=== PATIENT | male | born 1965 | race Caucasian/White ===

== ENCOUNTER 2019-01-07 20:29 | Emergency (ER) | payer BC, OTHER ==
[2019-01-07] MEDS ORDERED: KEFLEX 500 MG PO ONE (20:39)
[2019-01-07] MEDS ORDERED: KEFLEX 500 MG ONE (20:44)
[2019-01-07] MEDS ORDERED: MOTRIN 400 MG PO ONE (20:57)
[2019-01-07] MEDS ORDERED: MOTRIN 400 MG ONE (21:00)
--- NOTE | 2019-01-07 21:26 | ERPHSYRPT ---
- History of Present Illness Time Seen by Provider: 01/07/19 20:34 Source: patient Exam Limitations: no limitations Patient Subjective Stated Complaint: dressing stuck to wound on finger, redness noted to left middle finger Triage Nursing Assessment: redness noted to left middle finger with stiches intact Physician History: Pt was treated here 2 days ago, laceration to his left middle finger was sutured. He returned, because the gauze stuck in his sutures, and c/o swelling, and some redness in the area. He felt some chills, but did not take his temperature, did not take any medications. Occurred: days ago (2) Method of Injury: direct blow Quality: constant Severity of Pain-Max: mild Severity of Pain-Current: mild Extremities Pain Location: shoulder: left, 3rd finger: left (laceration sutured 2 days ago here) Modifying Factors: Improves With: immobilization, movement Associated Symptoms: fever Allergies/Adverse Reactions: codeine Allergy (Verified 01/05/19 18:38) Swelling iodine Allergy (Verified 01/05/19 18:38) Swelling Home Medications: No Reportable Medications [No Reported Medications] 01/05/19 [History] Hx Tetanus, Diphtheria Vaccination/Date Given: Yes Hx Influenza Vaccination/Date Given: No Hx Pneumococcal Vaccination/Date Given: No Immunizations Up to Date: No - Review of Systems Constitutional: Fever (subjective), Chills Ears, Nose, & Throat: No Symptoms Respiratory: No Symptoms Cardiac: No Symptoms Abdominal/Gastrointestinal: No Symptoms Genitourinary Symptoms: No Symptoms Musculoskeletal: Other (left middle finger laceration ) Skin: No Symptoms Neurological: No Symptoms All Other Systems: Reviewed and Negative - Past Medical History Pertinent Past Medical History: No Neurological History: No Pertinent History ENT History: Cataracts Cardiac History: No Pertinent History Respiratory History: No Pertinent History Endocrine Medical History: No Pertinent History Musculoskeletal History: No Pertinent History GI Medical History: No Pertinent History History: No Pertinent History Psycho-Social History: No Pertinent History Male Reproductive Disorders: No Pertinent History - Past Surgical History Past Surgical History: Yes Neuro Surgical History: No Pertinent History Cardiac: No Pertinent History Respiratory: No Pertinent History Gastrointestinal: Cholecystectomy Genitourinary: No Pertinent History Musculoskeletal: No Pertinent History Male Surgical History: No Pertinent History - Social History Smoking Status: Never smoker Exposure to second hand smoke: No Drug Use: none Patient Lives Alone: No - Nursing Vital Signs Nursing Vital Signs: Initial Vital Signs Temperature 100.3 F 01/07/19 20:37 Pulse Rate 104 H 01/07/19 20:37 Respiratory Rate 20 01/07/19 20:37 Blood Pressure 178/102 01/07/19 20:37 O2 Sat by Pulse Oximetry 97 01/07/19 20:37 Pain Scale Pain Intensity 6 - Physical Exam General Appearance: no apparent distress Neck Exam: normal inspection Cardiovascular/Respiratory Exam: chest non-tender, normal breath sounds, heart sounds normal Abdominal Exam: non-tender Back Exam: normal inspection Hand Exam: soft tissue tenderness (transverse laceration of the volar aspect of the middle finger at the PIP level, sutures are intact, slight ( 1-2 mm) incipient skin necrosis, a drop of pus appeared upon pressing the proximal, radial end of the wound, the base phalanx and the distal dorsal hand is swollen , distal circulation of the finger is intact, normal ( < 2 sec. ) capillary refills and intact sensation. ) Neuro/Tendon Exam: normal motor functions Mental Status Exam: alert, oriented x 3 Skin Exam: normal color, warm, dry SpO2 Interpretation: normal SpO2: 97 O2 Delivery: Room Air - Course Nursing assessment & vital signs reviewed: Yes - Radiology Exams Left Hand X-ray Interpretation: Interpreted by me, Negative Ordered Tests: Active Orders 24 hr Category Date Time Status IV Insertion STAT Care 01/07/19 22:10 Active Wound Care STAT Care 01/07/19 20:37 Active HAND (MINIMUM 3 VIEWS) Stat Exams 01/07/19 21:02 Taken CULTURE,WOUND Stat Lab 01/07/19 20:38 Received Medication Summary Generic Name Dose Route Start Last Admin Trade Name Freq PRN Reason Stop Dose Admin Vancomycin HCl 1 gm in 250 mls @ 167 mls/hr 01/07/19 22:10 01/07/19 23:08 Vancomycin 1gm/ Ns 250ml IV 01/07/19 23:39 167 mls/hr STAT ONE Administration Discontinued Medications Generic Name Dose Route Start Last Admin Trade Name Freq PRN Reason Stop Dose Admin Cephalexin HCl 500 mg 01/07/19 20:39 01/07/19 20:49 Keflex 500 Mg PO 01/07/19 20:40 500 mg STAT ONE Administration Cephalexin HCl Confirm 01/07/19 20:44 Keflex 500 Mg Administered 01/07/19 20:45 Dose 500 mg .ROUTE .STK-MED ONE Ceftriaxone Sodium/Dextrose 1 g in 50 mls @ 100 mls/hr 01/07/19 22:10 23:04 Rocephin 1 Gm-D5w 50 Ml Bag IV 01/07/19 22:39 Infused STAT STA Infusion Ceftriaxone Sodium/Dextrose Confirm 01/07/19 22:28 Rocephin 1 Gm-D5w 50 Ml Bag Administered 01/07/19 22:29 Dose 1 g in 50 mls @ ud IV .STK-MED ONE Vancomycin HCl Confirm 01/07/19 22:59 Vancomycin 1gm/ Ns 250ml Administered 01/07/19 23:00 Dose 250 mls @ ud IV .STK-MED ONE Ibuprofen 400 mg 01/07/19 20:57 01/07/19 21:03 Motrin 400 Mg PO 01/07/19 20:58 400 mg STAT ONE Administration Ibuprofen Confirm 01/07/19 21:00 Motrin 400 Mg Administered 01/07/19 21:01 Dose 400 mg .ROUTE .STK-MED ONE - Progress Progress: improved Progress Note: 01/07/19 21:30 Wound cultures obtained, pt was given Motrin and PO Keflex, X ray reviewed, called Dr Spencer, hand surgeon in [facility], [place], discussed this case in details, he accepted patient to be admitted to [facility] for further treatment. 01/07/19 22:23 Pt was also given 1000 mg Rocephin, and 1 g Vancomycin IV, called Dr Baca, Hospitalist in [facility], discussed our case in details, he accepted patient to be admitted there. Pt will be driven there by his friend , after IV antibiotics completed, he was informed and agreed, understood all risks and benefits of this transfer, he has been stable. Counseled pt/family regarding: diagnosis, rad results - Departure Departure Disposition: Transfer ([facility], Direct Admission Room: 4160) Clinical Impression: Tenosynovitis of finger and hand Laceration of finger of left hand Qualifiers: Encounter type: subsequent encounter Finger: middle finger Damage to nail status: with damage Foreign body presence: without foreign body Qualified Code(s ): S61.313D - Laceration without foreign body of left middle finger with damage to nail, subsequent encounter Condition: Stable Critical Care Time: No Referrals: DOCTOR,NO FAMILY [Primary Care Provider] -
[2019-01-07] MEDS ORDERED: Vancomycin 1GM/ Ns 250ML*** 1 GM/250 ML IVPB IV ONE (22:10)
[2019-01-07] MEDS ORDERED: ROCEPHIN 1 Gm-D5w 50 ml Bag** 1 G/50 ML IVPB IV STA (22:10)
[2019-01-07] MEDS ORDERED: ROCEPHIN 1 Gm-D5w 50 ml Bag** 1 G/50 ML IVPB IV ONE (22:28)
[2019-01-07] MEDS ORDERED: Vancomycin 1GM/ Ns 250ML*** 0 ML IV ONE (22:59)
[2019-01-08 00:08] VITALS: O2SAT 96
[2019-01-08 00:51] VITALS: BP 147/89; PULSE 92
--- NOTE | 2019-01-08 08:56 | XRAY ---
Indication: 3rd finger pain and swelling. Comparison: None 3 views of the left hand demonstrates minimal degenerative changes 1st IP and 3rd DIP joints. No other bony, articular, or soft tissue abnormalities.
== END 2019-01-08 00:52 | disposition short-term general hospital (02) ==
LOC: ED 20:29
DX: M65.842 Other synovitis and tenosynovitis, left hand (principal); S61.313D Laceration without foreign body of left middle finger with damage to nail, subsequent encounter; W22.8XXD Striking against or struck by other objects, subsequent encounter
CPT/HCPCS: 36000; 73130; 87070; 87077; 87186; 96365; 96368; 96374; 99285; J0696; J3370; A9270-GY

== ENCOUNTER 2020-12-06 04:11 | Emergency (ER) | payer BC ==
[2020-12-06] MEDS ORDERED: Zofran 4 MG/2 ML VIAL IV ONE (04:44)
[2020-12-06] MEDS ORDERED: PROTONIX 40 MG IV IV ONE ×2 (04:46→04:51)
[2020-12-06] MEDS ORDERED: Hydromorphone 1 mg/ml Injection IV ONE (04:46)
[2020-12-06] MEDS ORDERED: Zofran 4 MG/2 ML VIAL ONE (04:51)
[2020-12-06] MEDS ORDERED: Hydromorphone 1 mg/ml Injection ONE (04:52)
[2020-12-06] MEDS ORDERED: Sodium Chloride 0.9% 1000 ML 1,000 ML ONE (04:52)
[2020-12-06] MEDS ORDERED: Sodium Chloride 0.9% 1000 ML 1,000 ML IV SCH (05:00)
--- NOTE | 2020-12-06 05:07 | ERPHSYRPT ---
- History of Present Illness Time Seen by Provider: 12/06/20 04:45 Source: patient Patient Subjective Stated Complaint: pt states he woke up with pain in the upper abd today. rates 8/10 and describes as sharp, cramping. c/o nausea and dry heaving but no vomiting. states he was diagnosed with covid approx 2 weeks ago Triage Nursing Assessment: pt alert and oriented, answers questions approp. pt ambulatory with steady gait noted. respirations nonlabored with lungs cta. skin warm and dry. respirations nonlabored with lungs cta. abd soft and nontender with bowel sounds present x4. heart rate 103 on monitor, sinus tach. Physician History: This is a 55-year-old white male who tested positive for the COVID-19 virus just under 2 weeks ago. He has had some underlying nausea, decreased appetite and dry heaves as well as cough. A few hours ago, he woke up with epigastric burning and sharp pain. He describes it as a heartburn. He is not short of breath. He has had no vomiting but dry heaves present. He also states that his bowel movements are normal. He has not had diarrhea. He has not had any fevers or chills. Timing/Duration: hour(s) (Approximately 1 to 2 hours ago) Cough Quality/Degree: mild Possible Cause: no prior episodes Modifying Factors: Improves With: coughing Associated Symptoms: cough, muscle aches, No fever, No chills, No chest pain/soreness, No dizziness, No shortness of breath Allergies/Adverse Reactions: codeine Allergy (Verified 12/06/20 04:23) Swelling iodine Allergy (Verified 12/06/20 04:23) Swelling Home Medications: No Reportable Medications [No Reported Medications] 01/05/19 [History] Hx Tetanus, Diphtheria Vaccination/Date Given: Yes (2018) Hx Influenza Vaccination/Date Given: No Hx Pneumococcal Vaccination/Date Given: No Immunizations Up to Date: Yes Travel Risk - International Travel Have you traveled outside of the country in past 3 weeks: No - Coronavirus Screening Are you exhibiting any of the following symptoms?: Yes Symptoms: Fever, Cough: New Onset, Headaches/Body Aches/Fatigue Close contact with a COVID-19 positive Pt in past 14-21 Days: Yes - Vaccine Status Have you recieved a Covid-19 vaccination: No - Review of Systems Constitutional: No Symptoms Eyes: No Symptoms Ears, Nose, & Throat: No Symptoms Respiratory: Cough Cardiac: No Symptoms Abdominal/Gastrointestinal: Abdominal Pain (Epigastric sharp pain and burning), Nausea, Appetite Changes, No Vomiting, No Diarrhea Genitourinary Symptoms: No Symptoms Musculoskeletal: No Symptoms Skin: No Symptoms Neurological: No Symptoms Psychological: No Symptoms Endocrine: No Symptoms Hematologic/Lymphatic: No Symptoms Immunological/Allergic: No Symptoms All Other Systems: Reviewed and Negative - Past Medical History Pertinent Past Medical History: No Neurological History: No Pertinent History ENT History: Cataracts Cardiac History: No Pertinent History Respiratory History: No Pertinent History Endocrine Medical History: No Pertinent History Musculoskeletal History: No Pertinent History GI Medical History: No Pertinent History History: No Pertinent History Psycho-Social History: No Pertinent History Male Reproductive Disorders: No Pertinent History Other Medical History: pt states borderline diabetic - Past Surgical History Past Surgical History: Yes Neuro Surgical History: No Pertinent History Cardiac: No Pertinent History Respiratory: No Pertinent History Gastrointestinal: Cholecystectomy Genitourinary: No Pertinent History Musculoskeletal: No Pertinent History Male Surgical History: No Pertinent History - Social History Smoking Status: Never smoker Exposure to second hand smoke: No Drug Use: none Patient Lives Alone: No - Nursing Vital Signs Nursing Vital Signs: Initial Vital Signs Temperature 100.8 F 12/06/20 04:23 Pulse Rate 103 H 12/06/20 04:23 Respiratory Rate 18 12/06/20 04:23 Blood Pressure 151/91 12/06/20 04:23 O2 Sat by Pulse Oximetry 93 L 12/06/20 04:23 Pain Scale Pain Intensity 2 - Physical Exam General Appearance: no apparent distress, alert, anxiety Eye Exam: PERRL/EOMI, eyes nml inspection Ears, Nose, Throat Exam: normal ENT inspection, moist mucous membranes Neck Exam: normal inspection, non-tender, supple, full range of motion Respiratory Exam: normal breath sounds, lungs clear, airway intact, No chest tenderness, No respiratory distress Cardiovascular Exam: regular rate/rhythm, normal heart sounds, normal peripheral pulses Gastrointestinal/Abdomen Exam: soft, normal bowel sounds, tenderness (Epigastric burning), No guarding, No rebound Rectal Exam: not done Back Exam: normal inspection, normal range of motion, No CVA tenderness, No vertebral tenderness Extremity Exam: normal inspection, normal range of motion, pelvis stable Neurologic Exam: alert, oriented x 3, cooperative, golf course ranger II-XII nml as tested, normal mood/affect, nml cerebellar function, nml station & gait, sensation nml Skin Exam: normal color, warm, dry Lymphatic Exam: No adenopathy SpO2 Interpretation: borderline oxygenation SpO2: 93 O2 Delivery: Room Air - Course Nursing assessment & vital signs reviewed: Yes Ordered Tests: Active Orders 24 hr Category Date Time Status EKG-ER Only STAT Care 12/06/20 04:44 Active IV Insertion STAT Care 12/06/20 04:44 Active Isolation, Initiate & Maintain STAT Care 12/06/20 04:44 Active CHEST 1 VIEW (PORTABLE) Stat Exams 12/06/20 05:35 Taken AMYLASE Stat Lab 12/06/20 05:00 Completed CBC W DIFF Routine Lab 12/06/20 05:07 Completed CMP Stat Lab 12/06/20 05:00 Completed CULTURE,URINE Stat Lab 12/06/20 04:49 Received D-DIMER QUANTITATIVE Stat Lab 12/06/20 05:00 Completed Ferritin Stat Lab 12/06/20 05:00 Received LDH-LACTATE DEHYDROGENASE Stat Lab 12/06/20 05:00 Completed LIPASE Stat Lab 12/06/20 05:00 Completed Lactic Acid Stat Lab 12/06/20 05:00 Completed PROTIME WITH INR Stat Lab 12/06/20 05:00 Completed TROPONIN Q3H Lab 12/06/20 04:49 Completed TROPONIN Q3H Lab 12/06/20 08:00 Ordered TROPONIN Q3H Lab 12/06/20 11:00 Ordered TROPONIN Q3H Lab 12/06/20 14:00 Ordered TROPONIN Q3H Lab 12/06/20 17:00 Ordered UA W/RFX UR CULTURE Stat Lab 12/06/20 04:49 Completed Medication Summary Generic Name Dose Route Start Last Admin Trade Name Freq PRN Reason Stop Dose Admin Sodium Chloride 1,000 mls @ 100 mls/hr 12/06/20 05:00 12/06/20 05:00 Sodium Chloride 0.9% 1000 Ml IV 01/05/21 04:59 100 mls/hr .Q10H KATERIN Administration Discontinued Medications Generic Name Dose Route Start Last Admin Trade Name Freq PRN Reason Stop Dose Admin Hydromorphone HCl 1 mg 12/06/20 04:46 12/06/20 05:01 Hydromorphone 1 Mg/Ml Injection IV 12/06/20 04:47 1 mg STAT ONE Administration Hydromorphone HCl Confirm 12/06/20 04:52 Hydromorphone 1 Mg/Ml Injection Administered 12/06/20 04:53 Dose 1 mg .ROUTE .STK-MED ONE Ondansetron HCl 4 mg 12/06/20 04:44 12/06/20 05:01 Zofran 4 Mg/2 Ml Vial IV 12/06/20 04:45 4 mg STAT ONE Administration Ondansetron HCl Confirm 12/06/20 04:51 Zofran 4 Mg/2 Ml Vial Administered 12/06/20 04:52 Dose 4 mg .ROUTE .STK-MED ONE Pantoprazole Sodium 40 mg 12/06/20 04:46 12/06/20 05:00 Protonix 40 Mg Iv IV 12/06/20 04:47 40 mg STAT ONE Administration Pantoprazole Sodium Confirm 12/06/20 04:51 Protonix 40 Mg Iv Administered 12/06/20 04:52 Dose 40 mg IV .STK-MED ONE Lab/Rad Data: Laboratory Result Diagrams 12/06/20 05:07 12/06/20 05:00 Laboratory Results 12/06/20 12/06/20 12/06/20 Range/Units 05:07 05:00 05:00 WBC 4.8 (4.0-10.5) K/mm3 RBC 5.61 H (4.1-5.6) M/mm3 Hgb 15.9 (12.5-18.0) gm/dl Hct 46.9 (42-50) % MCV 83.6 (78-100) fl MCH 28.3 (26-32) pg MCHC 33.9 (32-36) g/dl RDW 13.0 (11.5-14.0) % Plt Count 218 (150-450) K/mm3 MPV 10.4 (7.5-11.0) fl Gran % 79.7 H (36.0-66.0) % Eos # (Auto) 0 (0-0.5) Absolute Lymphs (auto) 0.55 L (1.0-4.6) Absolute Monos (auto) 0.42 (0.0-1.3) Lymphocytes % 11.4 L (24.0-44.0) % Monocytes % 8.7 (0.0-12.0) % Eosinophils % 0.0 (0.00-5.0) % Basophils % 0.2 (0.0-0.4) % Absolute Granulocytes 3.83 (1.4-6.9) Basophils # 0.01 (0-0.4) PT 13.0 H (9.4-12.5) SECONDS INR 1.10 (0.8-3.0) D-Dimer 724 H* (215-500) ng/mL Sodium 131 L (137-145) mmol/L Potassium 4.5 (3.5-5.1) mmol/L Chloride 95 L (98-107) mmol/L Carbon Dioxide 23 (22-30) mmol/L Anion Gap 17.6 H (5-15) MEQ/L BUN 22 H (9-20) mg/dL Creatinine 0.99 (0.66-1.25) mg/dL Estimated GFR > 60.0 ML/MIN Glucose 334 H (74-106) mg/dL Lactic Acid (0.4-2.0) Calcium 8.8 (8.4-10.2) mg/dL Total Bilirubin 0.60 (0.2-1.3) mg/dL AST 65 H (17-59) U/L ALT 75 H (0-50) U/L Alkaline Phosphatase 61 (38-126) U/L Lactate Dehydrogenase 358 H (120-246) U/L Troponin I (0.000-0.034) ng/mL Serum Total Protein 6.9 (6.3-8.2) g/dL Albumin 4.1 (3.5-5.0) g/dL Amylase 38 (30-110) U/L Lipase 173 (23-300) U/L Urine Color (YELLOW) Urine Appearance (CLEAR) Urine pH (5-6) Ur Specific [place] (1.005-1.025) Urine Protein (Negative) Urine Ketones (NEGATIVE) Urine Blood (0-5) Cj/ul Urine Nitrite (NEGATIVE) Urine Bilirubin (NEGATIVE) Urine Urobilinogen (0-1) mg/dL Ur Leukocyte Esterase (NEGATIVE) Urine WBC (Auto) (0-5) /HPF Urine RBC (Auto) (0-2) /HPF U Epithel Cells (Auto) (FEW) /HPF Urine Bacteria (Auto) (NEGATIVE) /HPF Urine Mucus (Auto) (NEGATIVE) /HPF Urine Culture Reflexed (NO) Urine Glucose (NEGATIVE) mg/dL Slides for Path Review YES 12/06/20 12/06/20 12/06/20 Range/Units 05:00 04:49 04:49 WBC (4.0-10.5) K/mm3 RBC (4.1-5.6) M/mm3 Hgb (12.5-18.0) gm/dl Hct (42-50) % MCV (78-100) fl MCH (26-32) pg MCHC (32-36) g/dl RDW (11.5-14.0) % Plt Count (150-450) K/mm3 MPV (7.5-11.0) fl Gran % (36.0-66.0) % Eos # (Auto) (0-0.5) Absolute Lymphs (auto) (1.0-4.6) Absolute Monos (auto) (0.0-1.3) Lymphocytes % (24.0-44.0) % Monocytes % (0.0-12.0) % Eosinophils % (0.00-5.0) % Basophils % (0.0-0.4) % Absolute Granulocytes (1.4-6.9) Basophils # (0-0.4) PT (9.4-12.5) SECONDS INR (0.8-3.0) D-Dimer (215-500) ng/mL Sodium (137-145) mmol/L Potassium (3.5-5.1) mmol/L Chloride (98-107) mmol/L Carbon Dioxide (22-30) mmol/L Anion Gap (5-15) MEQ/L BUN (9-20) mg/dL Creatinine (0.66-1.25) mg/dL Estimated GFR ML/MIN Glucose (74-106) mg/dL Lactic Acid 1.3 (0.4-2.0) Calcium (8.4-10.2) mg/dL Total Bilirubin (0.2-1.3) mg/dL AST (17-59) U/L ALT (0-50) U/L Alkaline Phosphatase (38-126) U/L Lactate Dehydrogenase (120-246) U/L Troponin I 0.014 (0.000-0.034) ng/mL Serum Total Protein (6.3-8.2) g/dL Albumin (3.5-5.0) g/dL Amylase (30-110) U/L Lipase (23-300) U/L Urine Color YELLOW (YELLOW) Urine Appearance SLIGHTLY CLOUDY (CLEAR) Urine pH 6.0 (5-6) Ur Specific [place] 1.031 (1.005-1.025) Urine Protein >=500 (Negative) Urine Ketones MODERATE (NEGATIVE) Urine Blood MODERATE (0-5) Cj/ul Urine Nitrite NEGATIVE (NEGATIVE) Urine Bilirubin NEGATIVE (NEGATIVE) Urine Urobilinogen NEGATIVE (0-1) mg/dL Ur Leukocyte Esterase NEGATIVE (NEGATIVE) Urine WBC (Auto) 3-5 (0-5) /HPF Urine RBC (Auto) 0-2 (0-2) /HPF U Epithel Cells (Auto) NONE (FEW) /HPF Urine Bacteria (Auto) NONE (NEGATIVE) /HPF Urine Mucus (Auto) SLIGHT (NEGATIVE) /HPF Urine Culture Reflexed YES (NO) Urine Glucose >=500 (NEGATIVE) mg/dL Slides for Path Review - Progress Progress: improved Air Movement: good Progress Note: 12/06/20 06:12 Chest x-ray shows typical COVID-19 pattern with bilateral opacities at the bases without consolidation. 12/06/20 06:12 Patient states that he is feeling much much better. He tolerated clear liquids. He will be discharged to home Blood Culture(s) Obtained: No Antibiotics given: No Counseled pt/family regarding: lab results, diagnosis, need for follow-up, rad results - Departure Departure Disposition: Home Clinical Impression: COVID-19 virus infection, Hyperglycemia, Dehydration Condition: Stable Critical Care Time: No Referrals: DOCTOR,NO FAMILY [Primary Care Provider] - Additional Instructions: Drink plenty of clear liquids before advancing your diet. Make sure you are tolerating clear liquids well before advancing. Use Tylenol and ibuprofen for muscle aches and pains and fever control. Follow-up with a primary care physician to evaluate and manage your hyperglycemia. Continue your Covid isolation instructions and restrictions. Obtain a work release from your primary care physician.
[2020-12-06 05:11] LABS: Appearance SLIGHTLY CLOUDY (CLEAR); Bilirubin NEGATIVE (NEGATIVE); Blood MODERATE Ery/ul (0-5); Glucose >=500 mg/dL (NEGATIVE); Ketones MODERATE (NEGATIVE); Leukocyte Esterase NEGATIVE (NEGATIVE); Mucus SLIGHT /HPF (NEGATIVE); Nitrite NEGATIVE (NEGATIVE); Protein,Urine Dip >=500 (Negative); RBC 0-2 /HPF (0-2); Specific Gravity 1.031 (1.005-1.025); Urobilinogen NEGATIVE mg/dL (0-1)
[2020-12-06 05:11] LABS: Absolute Neutrophil Ct (ANC) 3.83 (1.4-6.9); BASOPHIL % 0.2 % (0.0-0.4); Basophil (Absolute #) 0.01 (0-0.4); Eosinophil (Absolute #) 0 (0-0.5); Hematocrit 46.9 % (42-50); Hemoglobin 15.9 gm/dl (12.5-18.0); Lymphocyte (Absolute #) 0.55 (1.0-4.6); Lymphocytes % 11.4 % (24.0-44.0); Mean Cell Volume 83.6 fl (78-100); Mean Corpuscular Hemoglobin 28.3 pg (26-32); Mean Corpuscular Hgb Concent. 33.9 g/dl (32-36); Mean Platelet Volume 10.4 fl (7.5-11.0); Monocyte (Absolute #) 0.42 (0.0-1.3); Monocytes % 8.7 % (0.0-12.0); Neutrophil % 79.7 % (36.0-66.0); Platelet Count 218 K/mm3 (150-450); Red Blood Count 5.61 M/mm3 (4.1-5.6); White Blood Count 4.8 K/mm3 (4.0-10.5)
[2020-12-06 05:12] LABS: INR 1.1 (0.8-3.0)
[2020-12-06 05:28] LABS: ALBUMIN 4.1 g/dL (3.5-5.0); ALKALINE PHOSPHATASE 61 U/L (38-126); AMYLASE 38 U/L (30-110); ANION GAP 17.6 MEQ/L (5-15); BLOOD UREA NITROGEN 22 mg/dL (9-20); CHLORIDE 95 mmol/L (98-107); Calcium 8.8 mg/dL (8.4-10.2); Carbon Dioxide 23 mmol/L (22-30); Creatinine 1 0.99 mg/dL (0.66-1.25); EST GLOMERULAR FILTRATION RATE > 60.0 ML/MIN; Glucose 334 mg/dL (74-106); LDH-LACTATE DEHYDROGENASE 358 U/L (120-246); LIPASE 173 U/L (23-300); Potassium 4.5 mmol/L (3.5-5.1); SGOT/AST 65 U/L (17-59); SGPT/ALT 75 U/L (0-50); SODIUM 131 mmol/L (137-145); Total Protein 6.9 g/dL (6.3-8.2)
[2020-12-06 06:07] LABS: Slide Review 1 YES
[2020-12-06 06:40] VITALS: BP 147/82; PULSE 87; O2SAT 96
--- NOTE | 2020-12-06 08:59 | XRAY ---
Indication: Cough. History Covid 19. Comparison: None Portable chest underinflated with right mid to lower lung segmental atelectasis and patchy peripheral left lung airspace disease. No consolidation/large effusion. Heart not enlarged. Bony thorax with mild degenerative changes.
== END 2020-12-06 06:57 | disposition home or self-care (01) ==
LOC: ED 04:11
DX: U07.1 COVID-19 (principal); E11.65 Type 2 diabetes mellitus with hyperglycemia; E86.0 Dehydration
CPT/HCPCS: 36000; 36415; 71045; 80053; 81001; 82150; 82728; 83605; 83615; 83690; 84484; 85025; 85379; 85610; 87086; 93005; 96374; 96375; 99284; J1170; J2405

== ENCOUNTER 2020-12-08 11:32 | Observation (INO) | payer BC ==
[2020-12-08] MEDS ORDERED: ENOXAPARIN SODIUM SQ ONE ×2 (11:51→12:20)
[2020-12-08] MEDS ORDERED: DECADRON 10MG INJ. IV ONE (11:52)
--- NOTE | 2020-12-08 11:53 | ERPHSYRPT ---
- History of Present Illness Time Seen by Provider: 12/08/20 11:45 Source: patient Exam Limitations: no limitations Patient Subjective Stated Complaint: SOB Triage Nursing Assessment: pt to ED c/o SOB x 2 days. COVID + 2 weeks ago. was in ED 2 days ago for NV associated with COVID and now feeling more SOB. O2 sat on RA 82%, placed on 6L NC and O2 improved to 95%. effort of breathing also eased with supplemental O2 placement. lungs clear and equal. Physician History: This is a 55-year-old white male who was diagnosed with Covid 19 infection approximately 2 weeks ago. He was seen in the emergency room here at [facility] because of indigestion and nausea and vomiting. He was significantly dehydrated. He did not have significant shortness of breath but did have a cough. Patient stated that he felt much better prior to his discharge from the emergency department. However in the last day and a half he has been having increasing shortness of breath. Patient is not on any medications. He is allergic to codeine and iodine. He had a thorough work-up including chest x-ray and labs. He was given intravenous fluids. His chest x- ray showed typical COVID-19 pneumonia that was mild but present bilaterally. He had a elevated D-dimer, which can be seen in COVID-19 infection. I did not perform CAT scan of his chest with contrast at that time because the patient is allergic to iodine. He does not have chest pain. He does not have nausea vomiting or diarrhea. He does not have abdominal pain. I called Dr. Au, our COVID-19 hospitalist. I reviewed the patient history, lab results and chest x- ray results. I also reviewed the patient's condition on arrival to the emergency department here. He stated that it is not necessary to repeat every test. He was made aware that the patient had an elevated D-dimer at the time of his last visit and we will repeat some basic labs as well as a troponin, perform an EKG and admit the patient to Covid unit. We will place him on steroids, Sabas enox and remdesivir. He will determine whether or not the patient will need a VQ scan at a later time. Timing/Duration: day(s) (-05/20) Activities at Onset: none Severity of Dyspnea-Max: moderate Severity of Dyspnea-Current: mild (Mild to moderate) Possible Cause: no prior episodes Associated Symptoms: anxiety, cough, No chest pain/discomfort, No painful breathing Allergies/Adverse Reactions: codeine Allergy (Verified 12/06/20 04:23) Swelling iodine Allergy (Verified 12/06/20 04:23) Swelling Home Medications: Glyburide/Metformin HCl [Glyburide-Metformin 5-500 mg] 1 tablet PO DAILY [History] Hx Tetanus, Diphtheria Vaccination/Date Given: Yes (2018) Hx Influenza Vaccination/Date Given: No Hx Pneumococcal Vaccination/Date Given: No Immunizations Up to Date: No Travel Risk - International Travel Have you traveled outside of the country in past 3 weeks: No - Coronavirus Screening Are you exhibiting any of the following symptoms?: Yes Symptoms: Fever, Cough: New Onset, Shortness of Breath Close contact with a COVID-19 positive Pt in past 14-21 Days: Yes - Vaccine Status Have you recieved a Covid-19 vaccination: No - Review of Systems Constitutional: No Symptoms Eyes: No Symptoms Ears, Nose, & Throat: No Symptoms Respiratory: Cough, Dyspnea Cardiac: No Symptoms Abdominal/Gastrointestinal: No Symptoms Genitourinary Symptoms: No Symptoms Musculoskeletal: No Symptoms Skin: No Symptoms Neurological: No Symptoms Psychological: No Symptoms Endocrine: No Symptoms Hematologic/Lymphatic: No Symptoms Immunological/Allergic: No Symptoms All Other Systems: Reviewed and Negative - Past Medical History Pertinent Past Medical History: Yes Neurological History: No Pertinent History ENT History: Cataracts Cardiac History: Hypertension Respiratory History: No Pertinent History Endocrine Medical History: No Pertinent History Musculoskeletal History: No Pertinent History GI Medical History: No Pertinent History History: No Pertinent History Psycho-Social History: No Pertinent History Male Reproductive Disorders: No Pertinent History Other Medical History: pt states borderline diabetic - Past Surgical History Past Surgical History: Yes Neuro Surgical History: No Pertinent History Cardiac: No Pertinent History Respiratory: No Pertinent History Gastrointestinal: Cholecystectomy Genitourinary: No Pertinent History Musculoskeletal: No Pertinent History Male Surgical History: No Pertinent History - Social History Smoking Status: Never smoker Exposure to second hand smoke: No Drug Use: none Patient Lives Alone: No - Nursing Vital Signs Nursing Vital Signs: Initial Vital Signs Temperature 98.4 F 12/08/20 11:37 Pulse Rate 94 H 12/08/20 11:37 Respiratory Rate 20 12/08/20 11:37 Blood Pressure 151/100 12/08/20 11:37 O2 Sat by Pulse Oximetry 83 L 12/08/20 11:37 Pain Scale Pain Intensity 0 - Physical Exam General Appearance: no apparent distress, alert, anxiety Eye Exam: PERRL/EOMI, eyes nml inspection Ears, Nose, Throat Exam: hearing grossly normal, normal ENT inspection, normal pharynx Neck Exam: normal inspection, non-tender, supple, full range of motion Respiratory Exam: normal breath sounds, lungs clear, respiratory distress (Mild), airway intact, No chest tenderness Cardiovascular/Chest Exam: normal heart sounds, regular rate/rhythm Abdominal/Gastrointestinal Exam: soft, normal bowel sounds, No tenderness Rectal Exam: not done Extremity Exam: non-tender, normal range of motion, normal inspection Neurologic Exam: alert, oriented x 3, cooperative, bottle washer machine II-XII nml as tested, normal mood/affect, nml cerebellar function, nml station & gait, sensation nml Skin Exam: normal color, warm, dry Lymphatic Exam: No adenopathy SpO2 Interpretation: borderline oxygenation SpO2: 95 O2 Delivery: Room Air - Course Nursing assessment & vital signs reviewed: Yes EKG Interpreted by Me: RATE (93), Sinus Rhythm, NORMAL AXIS, NORMAL INTERVALS, NORMAL QRS, NORMAL ST-T, Other (There is no acute ischemic changes on today's EKG. There is improvement in today's EKG when compared to EKG dated 12/06/2020.) Ordered Tests: Active Orders 24 hr Category Date Time Status Bedrest TOLERATED Activity 12/08/20 14:33 Active Admit as Inpatient ROUTINE Care 12/08/20 14:33 Active Code Status Order ROUTINE Care 12/08/20 14:33 Active EKG-ER Only STAT Care 12/08/20 11:50 Completed IV Insertion STAT Care 12/08/20 11:50 Completed Oxygen-ED Only Nasal Cannula 4 lpm Care 12/08/20 11:50 Completed Pulse Oximetry (ED) STAT Care 12/08/20 11:50 Completed Telemetry PROTOCOL Care 12/08/20 14:33 Active Weight,Daily 0600 Care 12/08/20 14:33 Active BMP AM.LAB Lab 12/09/20 04:00 Ordered BMP Stat Lab 12/08/20 12:10 Completed CBC W DIFF AM.LAB Lab 12/09/20 04:00 Ordered CBC W DIFF Stat Lab 12/08/20 12:10 Completed Manual Differential NC Stat Lab 12/08/20 12:10 Completed NT PRO BNP Stat Lab 12/08/20 12:10 Completed TROPONIN Q3H Lab 12/08/20 12:10 Completed TROPONIN Q3H Lab 12/09/20 00:00 Ordered Pulse Oximetry ROUTINE RT 12/08/20 14:33 Active Respiratory Therapy Consult ROUTINE RT 12/08/20 14:33 Completed Transfer Order Routine Transfer 12/08/20 Completed Medication Summary Generic Name Dose Route Start Last Admin Trade Name Jorge PRN Reason Stop Dose Admin Acetaminophen 650 mg 12/08/20 14:33 Tylenol 325 Mg PO 01/07/21 14:32 Q4H PRN PRN PAIN, FEVER, HEADACHE Dexamethasone Sodium Phosphate 8 mg 12/08/20 22:00 12/08/20 22:16 Decadron 10mg Inj. IV 01/07/21 21:59 8 mg Q12H KATERIN Administration Enoxaparin Sodium 90 mg 12/08/20 22:00 12/08/20 22:16 Enoxaparin Sodium SQ 01/07/21 21:59 Not Given Q12HT KATERIN Glyburide 5 mg 12/09/20 08:00 Micronase 5 Mg PO 01/08/21 07:59 BREAKFAST KATERIN Remdesivir 100 mg/ Sodium 100 mls @ 100 mls/hr 12/09/20 16:00 Chloride IV 12/12/20 16:59 Q24H KATERIN Lisinopril 20 mg 12/08/20 17:00 12/08/20 17:08 Zestril 20 Mg PO 01/07/21 16:59 20 mg DAILY KATERIN Administration Lorazepam 2 mg 12/08/20 16:12 Ativan 1 Mg PO 01/07/21 16:11 HS PRN PRN Metformin HCl 500 mg 12/09/20 08:00 Glucophage 500 Mg PO 01/08/21 07:59 BREAKFAST KATERIN Ondansetron HCl 4 mg 12/08/20 14:33 Zofran 4 Mg/2 Ml Vial IV 01/07/21 14:32 Q6H PRN PRN NAUSEA/VOMITING Discontinued Medications Generic Name Dose Route Start Last Admin Trade Name Jorge PRN Reason Stop Dose Admin Dexamethasone Sodium Phosphate 10 mg 12/08/20 11:52 12/08/20 12:23 Decadron 10mg Inj. IV 12/08/20 11:53 10 mg STAT ONE Administration Dexamethasone Sodium Phosphate Confirm 12/08/20 12:21 Decadron 10mg Inj. Administered 12/08/20 12:22 Dose 10 mg .ROUTE .STK-MED ONE Enoxaparin Sodium 90 mg 12/08/20 11:51 12/08/20 12:22 Enoxaparin Sodium SQ 12/08/20 11:52 90 mg STAT ONE Administration Enoxaparin Sodium Confirm 12/08/20 12:20 Enoxaparin Sodium Administered 12/08/20 12:21 Dose 120 mg SQ .STK-MED ONE Remdesivir 200 mg/ Sodium 250 mls @ 125 mls/hr 12/08/20 16:00 12/08/20 17:08 Chloride IV 12/08/20 17:59 125 mls/hr ONCE ONE Administration Lab/Rad Data: Laboratory Result Diagrams 12/08/20 12:10 12/08/20 12:10 Laboratory Results 12/08/20 12/08/20 12/08/20 Range/Units 12:10 12:10 12:10 WBC 7.5 (4.0-10.5) K/mm3 RBC 5.52 (4.1-5.6) M/mm3 Hgb 15.8 (12.5-18.0) gm/dl Hct 46.1 (42-50) % MCV 83.5 (78-100) fl MCH 28.6 (26-32) pg MCHC 34.3 (32-36) g/dl RDW 13.0 (11.5-14.0) % Plt Count 298 (150-450) K/mm3 MPV 10.0 (7.5-11.0) fl Absolute Granulocytes 6.35 (1.4-6.9) Segmented Neutrophils 77 H (36.-66.) % Band Neutrophils 8 H (0.0-2.0) % Lymphocytes (Manual) 9 L (24-44) % Monocytes (Manual) 6 (0.0-12.0) % Platelet Estimate NORMAL (NORMAL) RBC Morphology NORMAL Sodium 134 L (137-145) mmol/L Potassium 4.6 (3.5-5.1) mmol/L Chloride 98 (98-107) mmol/L Carbon Dioxide 23 (22-30) mmol/L Anion Gap 17.8 H (5-15) MEQ/L BUN 23 H (9-20) mg/dL Creatinine 0.81 (0.66-1.25) mg/dL Estimated GFR > 60.0 ML/MIN Glucose 334 H (74-106) mg/dL Calcium 9.2 (8.4-10.2) mg/dL Troponin I < 0.012 (0.000-0.034) ng/mL NT-Pro-B Natriuret Pep 214 (0-900) pg/mL - Progress Progress: improved, re-examined Air Movement: good Blood Culture(s) Obtained: No Antibiotics given: No Discussed with DrShelton: Other (Dr. Au) Counseled pt/family regarding: lab results, diagnosis - Departure Departure Disposition: In-patient Admission Clinical Impression: COVID-19 virus infection, Hypoxia Condition: Stable Critical Care Time: No
[2020-12-08 12:21] LABS: Hematocrit 46.1 % (42-50); Hemoglobin 15.8 gm/dl (12.5-18.0); Mean Cell Volume 83.5 fl (78-100); Mean Corpuscular Hemoglobin 28.6 pg (26-32); Mean Corpuscular Hgb Concent. 34.3 g/dl (32-36); Platelet Count 298 K/mm3 (150-450); Red Blood Count 5.52 M/mm3 (4.1-5.6); White Blood Count 7.5 K/mm3 (4.0-10.5)
[2020-12-08] MEDS ORDERED: DECADRON 10MG INJ. ONE (12:21)
[2020-12-08 12:40] LABS: ANION GAP 17.8 MEQ/L (5-15); BLOOD UREA NITROGEN 23 mg/dL (9-20); CHLORIDE 98 mmol/L (98-107); Calcium 9.2 mg/dL (8.4-10.2); Carbon Dioxide 23 mmol/L (22-30); Creatinine 1 0.81 mg/dL (0.66-1.25); EST GLOMERULAR FILTRATION RATE > 60.0 ML/MIN; Glucose 334 mg/dL (74-106); NT PRO BNP 214 pg/mL (0-900); Potassium 4.6 mmol/L (3.5-5.1); SODIUM 134 mmol/L (137-145)
[2020-12-08 13:00] LABS: BAND 8 % (0.0-2.0); Lymphocytes 9 % (24-44); Monocyte 6 % (0.0-12.0); Neutrophils 77 % (36.-66.); Total Cells Counted 100
[2020-12-08 13:01] LABS: Absolute Neutrophil Ct (ANC) 6.35 (1.4-6.9); Platelet Estimate NORMAL (NORMAL)
[2020-12-08] MEDS ORDERED: Zofran 4 MG/2 ML VIAL IV PRN (14:33)
[2020-12-08] MEDS ORDERED: TYLENOL 325 MG PO PRN (14:33)
[2020-12-08] MEDS ORDERED: REMDESIVIR 200 MG in Sodium Chloride 0.9% 250 ML 250 ML IV ONE (16:00)
[2020-12-08] MEDS ORDERED: Ativan 1 MG PO PRN (16:12)
[2020-12-08] MEDS: Zestril 20 MG PO SCH (17:08)
[2020-12-08] MEDS: DECADRON 10MG INJ. IV SCH (22:16)
[2020-12-08] MEDS: ENOXAPARIN SODIUM SQ SCH (22:16)
[2020-12-09 06:34] LABS: Mean Cell Volume 82.9 fl (78-100); Mean Corpuscular Hemoglobin 28.8 pg (26-32); Mean Corpuscular Hgb Concent. 34.8 g/dl (32-36); Mean Platelet Volume 10.6 fl (7.5-11.0); Platelet Count 345 K/mm3 (150-450); Red Blood Count 5.55 M/mm3 (4.1-5.6); White Blood Count 6.4 K/mm3 (4.0-10.5)
[2020-12-09] MEDS ORDERED: Glucophage 500 MG PO SCH (08:00)
[2020-12-09] MEDS ORDERED: Micronase 5 MG PO SCH (08:00)
[2020-12-09 08:09] VITALS: BP 159/105; PULSE 97
[2020-12-09] MEDS ORDERED: METFORMIN HCL PO SCH (10:00)
[2020-12-09] MEDS ORDERED: GLYBURIDE PO SCH (10:00)
[2020-12-09] MEDS: ENOXAPARIN SODIUM SQ SCH (10:33)
[2020-12-09] MEDS: DECADRON 10MG INJ. IV SCH (10:33)
[2020-12-09] MEDS: Zestril 20 MG PO SCH (10:33)
[2020-12-09 10:41] VITALS: O2SAT 95
[2020-12-09 13:41] LABS: Lymphocytes 13 % (24-44); Monocyte 2 % (0.0-12.0); Neutrophils 85 % (36.-66.); Total Cells Counted 100
[2020-12-09 13:42] LABS: Platelet Estimate NORMAL (NORMAL)
[2020-12-09] MEDS ORDERED: REMDESIVIR 100 MG in Sodium Chloride 0.9% 100 ML BAG 100 ML IV SCH (16:00)
--- NOTE | 2020-12-11 10:50 | HP ---
CHIEF COMPLAINT: Cough, shortness of breath, positive COVID test. HISTORY OF PRESENT ILLNESS: The patient is a 55 year-old white male who said that there are other people that he has been working with who had positive COVID. He was short of breath, coughing and tested positive two weeks ago. He was in the emergency room two days ago for nausea and vomiting. COVID is still positive. He was feeling more short of breath, O2 was 82% and he was placed on 6 liters of O2 and increased to 95% today. He said he is feeling better since he got back to the Med/Surg COVID unit. 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 He does not smoke. He does have high blood pressure, has some mild diabetes. His A1C is 8. His usual blood sugars are in the 90's. He lost a lot of weight to get to that level. He has mild hypertension. No heart attacks. No strokes. No chest pain. No nausea or vomiting. As expected his D-dimer was not terribly high. Troponins normal. His EKG was okay. MEDICATIONS: Glyburide/Metformin 1 tablet daily. ALLERGIES: CODEINE. IODINE. PHYSICAL EXAMINATION: The patient is alert, orientated, intelligent and in no severe distress. O2 saturations 92% on 2 liters. He is not obese. Besides his age and diabetes he has minimal risk. He did not get the vaccination for COVID. HEENT: Pupils equal and reactive to light. No jaundice. NECK: Supple without adenopathy or JVD. CHEST: Clear. CVS: No murmurs or gallops. ABDOMEN: Soft. No masses or organomegaly. EXTREMITIES: No cyanosis. No edema. IMPRESSION: COVID Pneumonia. PLAN: The patient will be treated with Remdesivir, Decadron and oxygen. We expect him to do well and perhaps be able to go home in a few days.
== END 2020-12-09 11:54 | disposition home or self-care (01) ==
LOC: ED 11:32 → INTOOBSV 14:25 → MED SURG 14:25
PROVIDERS: ADMIT Family Medicine; ATTEND Family Medicine
DX: U07.1 COVID-19 (principal); J12.82 Pneumonia due to coronavirus disease 2019; E11.9 Type 2 diabetes mellitus without complications; I10 Essential (primary) hypertension; Z79.899 Other long term (current) drug therapy
CPT/HCPCS: 36000; 36415; 80048; 83880; 84484; 85025; 93005; 93268; 94760; 94762; 96372; 96374; 99285; G0378; J1100; J1650; A9270-GY

== ENCOUNTER 2025-05-14 10:41 | Observation (INO) | payer OTHER ==
--- NOTE | 2025-05-14 10:44 | ERPHSYRPT ---
- History of Present Illness Time Seen by Provider: 05/14/25 10:44 Physician History: 60 yr M with hx of IDDM, DVT on eliquis, and recent LLE wound s/p wound vac presenting with worsening shortness of breath for several weeks. Patient states that he was hospitalized about a month ago at [facility]. During that admission he was found to have a DVT for which he was started on eliquis; he also had a debridement of a L thigh wound and wound vac was placed. He is currently on daily daptomycin infusions. He endorses worsening [place] and SOB over the last few weeks, particularly with laying flat or when trying to sleep. He also endorses several weeks of bilateral LE swelling. While at physical therapy, staff members have noted that he drops down to 80s on RA. He denies any known prior hx of heart disease. He has been compliant with his eliquis Allergies/Adverse Reactions: codeine Allergy (Verified 04/20/25 14:41) Swelling iodine Allergy (Verified 04/20/25 14:41) Swelling Home Medications: Glyburide/Metformin HCl [Glyburide-Metformin 5-500 mg] 1 tablet PO DAILY 12/08/20 [History] Apixaban [Eliquis] 5 mg PO DAILY 04/27/25 [History] Bumetanide 1 mg PO DAILY 04/27/25 [History] Ergocalciferol (Vitamin D2) [Vitamin D2] 1,250 mcg PO WEEKLY 04/27/25 [History] Loperamide HCl [Loperamide] 2 mg PO DAILY 04/27/25 [History] Saccharomyces Boulardii [Probiotic] 250 mg PO DAILY 04/27/25 [History] Tamsulosin HCl 0.4 mg PO DAILY 04/27/25 [History] Hx Tetanus, Diphtheria Vaccination/Date Given: Yes (2019) Hx Influenza Vaccination/Date Given: No Hx Pneumococcal Vaccination/Date Given: No - Past Medical History Pertinent Past Medical History: Yes Neurological History: No Pertinent History ENT History: Cataracts Cardiac History: Hypertension Respiratory History: No Pertinent History Endocrine Medical History: Diabetes Type II Musculoskeletal History: No Pertinent History GI Medical History: No Pertinent History History: No Pertinent History Psycho-Social History: No Pertinent History Male Reproductive Disorders: No Pertinent History Other Medical History: pt states borderline diabetic - Past Surgical History Past Surgical History: Yes Neuro Surgical History: No Pertinent History Cardiac: No Pertinent History Respiratory: No Pertinent History Gastrointestinal: Cholecystectomy Genitourinary: No Pertinent History Musculoskeletal: No Pertinent History Male Surgical History: No Pertinent History Other Surgical History: kidney biopsy - Social History Smoking Status: Never smoker Exposure to second hand smoke: No Drug Use: none - Nursing Vital Signs Nursing Vital Signs: Initial Vital Signs Temperature 98.2 F 05/14/25 10:42 Pulse Rate 109 H 05/14/25 10:42 Blood Pressure 136/85 05/14/25 10:42 O2 Sat by Pulse Oximetry 92 L 05/14/25 10:42 Pain Scale Pain Intensity 0 - Physical Exam SpO2 Interpretation: hypoxic (Patient satting 88% on RA during my assessment and placed on 2L supplemental O2 with improvement in sats to the low-mid 90s) Comments: 05/14/25 11:53 Gen: Nontoxic HEENT: NCAT, MMM CV: Ns1/s2, wwp Resp: Normal wob, +bibasilar crackles Abd: Nondistended MSK: Bilateral LE edema; LLE wound vac in place; +L thigh wound does not appear acutely infected Neuro: Alert and oriented x3, SABRINA Psych: Cooperative, speech nonpressured - Course EKG Interpreted by Me: Other (sinus tach, rate 108, nonspecific T wave flattening, no STEMI) - Radiology Exams Chest X-ray Interpretation: Other (bilateral pleural effusions with compressive atelectasis and bibasilar infiltrates) - CT Exams Chest CT Interpretation: Tele-radiologist Report (bilateral moderate-severe pleural effusions with RLL and LLL segmental collapse; multifocal airspace and bilateral ground glass opacities) Ordered Tests: Active Orders 24 hr Category Date Time Status EKG-ER Only STAT Care 05/14/25 11:15 Completed IV Insertion STAT Care 05/14/25 11:39 Active CHEST 2 VIEWS (PA AND LAT) Stat Exams 05/14/25 11:10 Taken CHEST WITHOUT CONTRAST [CT] Stat Exams 05/14/25 11:41 Completed CBC W DIFF Stat Lab 05/14/25 12:10 Completed CMP Stat Lab 05/14/25 12:10 Completed MAGNESIUM Stat Lab 05/14/25 12:10 Completed NT PRO BNPII Stat Lab 05/14/25 12:10 Completed PROTIME WITH INR Stat Lab 05/14/25 11:50 Completed PTT Stat Lab 05/14/25 11:50 Completed TROPONIN Q4H Lab 05/14/25 12:10 Completed TROPONIN Q4H Lab 05/14/25 15:15 Completed TROPONIN Q4H Lab 05/14/25 19:15 Ordered TROPONIN Q4H Lab 05/14/25 23:15 Ordered Transfer Order Routine Transfer 05/14/25 Ordered Medication Summary Discontinued Medications Generic Name Dose Route Start Last Admin Trade Name Jorge PRN Reason Stop Dose Admin Aspirin 325 mg 05/14/25 13:02 05/14/25 13:26 Aspirin 325 Mg Tablet.Ec PO 05/14/25 13:03 Not Given HS ONE Aspirin 324 mg 05/14/25 13:25 05/14/25 13:31 Aspirin 81 Mg Tab.Chew PO 05/14/25 13:26 324 mg STAT ONE Administration Aspirin Confirm 05/14/25 13:28 Aspirin 81 Mg Tab.Chew Administered 05/14/25 13:29 Dose 324 mg .ROUTE .STK-MED ONE Furosemide 40 mg 05/14/25 13:00 05/14/25 13:17 Furosemide 40 Mg/4 Ml Vial IV 05/14/25 13:01 40 mg STAT ONE Administration Furosemide Confirm 05/14/25 13:08 Furosemide 40 Mg/4 Ml Vial Administered 05/14/25 13:09 Dose 40 mg .ROUTE .STK-MED ONE Piperacillin Sod/Tazobactam 100 mls @ 200 mls/hr 05/14/25 13:04 05/14/25 14:46 Sod 3.375 gm/ Sodium Chloride IV 05/14/25 13:33 Infused STAT ONE Infusion Sodium Chloride Confirm 05/14/25 13:08 Sodium Chloride 0.9% Administered 05/14/25 13:09 Dose 100 mls @ ud .ROUTE .STK-MED ONE Phenylephrine HCl 15 ml 05/14/25 15:15 Neosynephrine 0.5% Nasal [place]/Drops NS 05/14/25 15:16 STAT ONE Piperacillin Sod/Tazobactam Sod Confirm 05/14/25 13:08 Piperacillin/Tazobactam Sodium 3.375 Gm Vial Administered 05/14/25 13:09 Dose 3.375 gm IV .STK-MED ONE Lab/Rad Data: Laboratory Result Diagrams 05/14/25 12:10 05/14/25 12:10 Laboratory Results 05/14/25 05/14/2505/14/25 Range/Units 15:15 12:10 12:10 WBC (4.23-9.07) x10^3/uL RBC (4.63-6.08) x10^6/uL Hgb (13.7-17.5) g/dL Hct (40.1-51.0) % MCV (79.0-92.2) fL MCH (25.7-32.2) pg MCHC (32.3-36.5) g/dL RDW (11.6-14.4) % Plt Count (163-337) x10^3/uL MPV (9.4-12.4) fL Gran % (34.0-67.9) % Immature Gran % (Auto) (0.001-0.429) % Nucleat RBC Rel Count (0.00-0.2) % Eos # (Auto) (0.04-0.54) x10^3/uL Immature Gran # (Auto) (0.001-0.031) x10^3u/L Absolute Lymphs (auto) (1.32-3.57) x10^3/uL Absolute Monos (auto) (0.30-0.82) x10^3/uL Absolute Nucleated RBC (0.00-0.012) x10^3u/L Lymphocytes % (21.8-53.1) % Monocytes % (5.3-12.2) % Eosinophils % (0.8-7.0) % Basophils % (0.2-1.2) % Absolute Granulocytes (1.78-5.38) x10^3/uL Basophils # (0.01-0.08) x10^3/uL PT (9.4-12.5) SECONDS INR (0.8-3.0) APTT (25.1-36.5) SECONDS Sodium 133 L (135-145) mmol/L Potassium 4.6 (3.5-5.1) mmol/L Chloride 98 (98-107) mmol/L Carbon Dioxide 29 (22-30) mmol/L Anion Gap 10.4 (5-15) MEQ/L BUN 21 H (9-20) mg/dL Creatinine 0.96 (0.66-1.25) mg/dL Estimated GFR 91.1 ML/MIN Glucose 395 H (74-106) mg/dL Calcium 9.2 (8.4-10.2) mg/dL Magnesium 1.8 (1.6-2.3) mg/dL Total Bilirubin 0.60 (0.2-1.3) mg/dL AST 34 (17-59) U/L ALT 32 (0-50) U/L Alkaline Phosphatase 122 (38-126) U/L Troponin I 0.061 H* 0.051 H* (0.000-0.033) ng/mL NT-Pro-B Natriuret Pep 8170 (<300) pg/mL Serum Total Protein 6.1 L (6.3-8.2) g/dL Albumin 3.3 L (3.5-5.0) g/dL Influenza Type A Ag (NEGATIVE) Influenza Type B Ag (NEGATIVE) RSV (PCR) (NEGATIVE) SARS-CoV-2 (PCR) (NEGATIVE) 05/14/25 05/14/25 05/14/25 Range/Units 12:10 11:50 11:50 WBC 10.7 H (4.23-9.07) x10^3/uL RBC 3.55 L (4.63-6.08) x10^6/uL Hgb 9.8 L (13.7-17.5) g/dL Hct 31.5 L (40.1-51.0) % MCV 88.7 (79.0-92.2) fL MCH 27.6 (25.7-32.2) pg MCHC 31.1 L (32.3-36.5) g/dL RDW 14.4 (11.6-14.4) % Plt Count 444 H (163-337) x10^3/uL MPV 9.5 (9.4-12.4) fL Gran % 86.2 H (34.0-67.9) % Immature Gran % (Auto) 0.3 (0.001-0.429) % Nucleat RBC Rel Count 0.0 (0.00-0.2) % Eos # (Auto) 0.12 (0.04-0.54) x10^3/uL Immature Gran # (Auto) 0.03 (0.001-0.031) x10^3u/L Absolute Lymphs (auto) 0.65 L (1.32-3.57) x10^3/uL Absolute Monos (auto) 0.62 (0.30-0.82) x10^3/uL Absolute Nucleated RBC 0.00 (0.00-0.012) x10^3u/L Lymphocytes % 6.1 L (21.8-53.1) % Monocytes % 5.8 (5.3-12.2) % Eosinophils % 1.1 (0.8-7.0) % Basophils % 0.5 (0.2-1.2) % Absolute Granulocytes 9.23 H (1.78-5.38) x10^3/uL Basophils # 0.05 (0.01-0.08) x10^3/uL PT 11.4 (9.4-12.5) SECONDS INR 1.02 (0.8-3.0) APTT 24.2 L (25.1-36.5) SECONDS Sodium (135-145) mmol/L Potassium (3.5-5.1) mmol/L Chloride (98-107) mmol/L Carbon Dioxide (22-30) mmol/L Anion Gap (5-15) MEQ/L BUN (9-20) mg/dL Creatinine (0.66-1.25) mg/dL Estimated GFR ML/MIN Glucose (74-106) mg/dL Calcium (8.4-10.2) mg/dL Magnesium (1.6-2.3) mg/dL Total Bilirubin (0.2-1.3) mg/dL AST (17-59) U/L ALT (0-50) U/L Alkaline Phosphatase (38-126) U/L Troponin I (0.000-0.033) ng/mL NT-Pro-B Natriuret Pep (<300) pg/mL Serum Total Protein (6.3-8.2) g/dL Albumin (3.5-5.0) g/dL Influenza Type A Ag NEGATIVE (NEGATIVE) Influenza Type B Ag NEGATIVE (NEGATIVE) RSV (PCR) NEGATIVE (NEGATIVE) SARS-CoV-2 (PCR) NEGATIVE (NEGATIVE) - Progress Progress: unchanged Progress Note: 05/14/25 13:42 -His CXR is concerning for signs of PNA vs fluid overload. CT chest obtained, which was notable for bilateral large pleural effusions with ground-glass opacities concerning for infectious process vs volume overload vs both. His troponin is also elevated at 0.051. His EKG shows T wave flattening however no evidence of STEMI -Given his elevated troponin and evidence of volume overload, suspect new CHF as most likely etiology and will empirically diurese with lasix and give dose of aspirin. He is already on therapeutic anticoagulation with eliquis which makes VTE less likely as etiology of his NSTEMI. Unfortunately unable to obtain angiogram at this time given iodine allergy and inability to give steroid pre- medications due to his healing LLE wound and hyperglycemia. -Given suspicion for superimposed PNA given imaging findings, his leukocytosis on labs today and his recent hospitalization, will treat for presumed hospital acquired PNA with zosyn. He is already receiving IV daptomycin -Patient and mother at bedside updated at bedside. They understand that they need to be transferred to an outside hospital with cardiology coverage for higher level of care. [facility] contacted, awaiting callback 05/14/25 13:55 05/14/25 15:[address] Mckeon at [facility]. Bed will not be available untill much later tonight into AM. Will admit here while awaiting transfer - Departure Departure Disposition: Transfer Clinical Impression: NSTEMI (non-ST elevated myocardial infarction), Pulmonary edema, Volume overload, PNA (pneumonia), Bilateral pleural effusion, Acute hypoxic respiratory failure Condition: Serious Critical Care Time: Yes Critical Care Time(excluding separately billable procedures): Critical 30-74 mins (Patient has an acute NSTEMI and acute hypoxic respiratory failure in the setting of pulmonary edema/volume overload/PNA) Referrals: DOCTOR,NO FAMILY [Primary Care Provider, UNKNOWN] - Follow up/PCP as directed
[2025-05-14 12:13] LABS: BASOPHIL % 0.5 % (0.2-1.2); Basophil (Absolute #) 0.05 x10^3/uL (0.01-0.08); Eosinophil (Absolute #) 0.12 x10^3/uL (0.04-0.54); Hematocrit 31.5 % (40.1-51.0); Hemoglobin 9.8 g/dL (13.7-17.5); IMMATURE GRAN # 0.03 x10^3u/L (0.001-0.031); IMMATURE GRAN % 0.3 % (0.001-0.429); Lymphocyte (Absolute #) 0.65 x10^3/uL (1.32-3.57); Mean Corpuscular Hemoglobin 27.6 pg (25.7-32.2); Mean Corpuscular Hgb Concent. 31.1 g/dL (32.3-36.5); Monocyte (Absolute #) 0.62 x10^3/uL (0.30-0.82); NUCLEATED RBC # 0.00 x10^3u/L (0.00-0.012); NUCLEATED RBC % 0.0 % (0.00-0.2); Platelet Count 444 x10^3/uL (163-337); Red Blood Count 3.55 x10^6/uL (4.63-6.08); White Blood Count 10.7 x10^3/uL (4.23-9.07)
[2025-05-14 12:23] LABS: INR 1.02 (0.8-3.0); PROTIME 11.4 SECONDS (9.4-12.5); PTT 24.2 SECONDS (25.1-36.5)
[2025-05-14 12:34] LABS: Calcium 9.2 mg/dL (8.4-10.2); Carbon Dioxide 29.0 mmol/L (22-30); Creatinine 1 0.96 mg/dL (0.66-1.25); EST GLOMERULAR FILTRATION RATE 91.1 ML/MIN; Glucose 395.0 mg/dL (74-106); Potassium 4.6 mmol/L (3.5-5.1); SGOT/AST 34.0 U/L (17-59); SGPT/ALT 32.0 U/L (0-50); Total Protein 6.1 g/dL (6.3-8.2)
[2025-05-14 12:38] LABS: NT PRO BNPII 8170.0 pg/mL (<300)
[2025-05-14 12:39] LABS: INFLUENZA A NEGATIVE (NEGATIVE); INFLUENZA B NEGATIVE (NEGATIVE); RESPIRATORY SYNCTIAL VIRUS NEGATIVE (NEGATIVE); SARS-CoV-2 Xpert Express NEGATIVE (NEGATIVE)
--- NOTE | 2025-05-14 12:44 | XRAY ---
CLINICAL HISTORY: SOB. Eval for PNA vs edema vs PE COMPARISON: None. TECHNIQUE: Contiguous axial CT images of the chest were acquired without administration of intravenous contrast. Coronal and sagittal reconstructions were obtained. One of the following dose reduction techniques was utilized for this exam: Automated exposure control, adjustment of the mA and/or kV according to patient size, use of iterative reconstruction. FINDINGS: Lines: A right-sided central venous catheter is seen terminating in the distal SVC. Lungs: Bilateral moderate to severe pleural effusion, with associated right lower lobe subsegmental passive collapse, and left lower lobe posterior segmental passive collapse. There are multiple bilateral variable-sized patches of ground glass and consolidative opacities, with associated surrounding interstitial thickening and interlobular septal thickening, more prominent at both lower lobes. No pneumothorax. Mediastinum: The mediastinum is normal in size and contour. No mediastinal mass or abnormal lymphadenopathy. The heart size is within normal limits. Hilar Structures: The hilar structures appear normal without enlargement or abnormality. Mild atheromatous calcifications of the aorta or coronary arteries. Trachea and Main Bronchi: The trachea and main bronchi are patent without evidence of obstruction or abnormality. Chest Wall: The chest wall is unremarkable with no evidence of soft tissue or bony abnormalities. Upper Abdomen: Visualized portions of the liver, spleen, adrenal glands, and kidneys show hepatomegaly. Diffuse severe subcutaneous edema in both flank areas. Bones: Old fractures of the left 10th and 11th ribs are noted. Diffuse spondylotic changes. IMPRESSION: 1. Bilateral moderate?severe pleural effusions with right lower lobe subsegmental passive collapse and left lower lobe posterior segmental passive collapse. 2. Multifocal bilateral ground-glass and consolidative opacities with associated interstitial and interlobular septal thickening, more pronounced in the lower lobes. These appearances are nonspecific and may reflect pulmonary edema, multifocal infection, or a combined process. Please correlate with clinical and lab data. 3. Diffuse severe subcutaneous edema of the flanks, suggests underlying volume overload/systemic edema. 4. Right-sided central venous catheter terminating in the distal SVC. 5. Old left 10th?11th rib fractures and diffuse spondylotic changes. Electronically Signed by: Vini Mtz MD. (05/14/2025 12:42:48 EST)
[2025-05-14 13:00] LABS: TROPONIN 0.051 ng/mL (0.000-0.033)
[2025-05-14] MEDS ORDERED: Lasix 40 MG/4 ML ONE ×2 (13:08→18:42)
[2025-05-14] MEDS ORDERED: PIPERACILLIN/TAZOBACTAM IV ONE ×2 (13:08→18:42)
[2025-05-14] MEDS: Lasix 40 MG/4 ML IV ONE (13:17)
[2025-05-14] MEDS: Ecotrin 325 MG PO ONE (13:26)
[2025-05-14] MEDS ORDERED: BABY ASPIRIN 81 MG CHEW ONE (13:28)
[2025-05-14] MEDS: BABY ASPIRIN 81 MG CHEW PO ONE (13:31)
[2025-05-14] MEDS ORDERED: NEOSYNEPHRINE 0.5% NASAL SPRAY/DROPS NS ONE (15:15)
--- NOTE | 2025-05-14 17:42 | PCM.SSS ---
<DMITRIY MORRISON - Last Filed: 05/14/25 17:55> History of Present Illness - Chief Complaint Chief Complaint: pleural effusion nstemi Date: 05/14/25 History of Present Illness: is a 60 year old male whose only known past medical history is type 2 diabetes mellitus, who presented to the emergency department on 05/14/25 with progressively worsening shortness of breath. He reports that he was most recently hospitalized at [facility] and discharged on 05/10/25. He states that last week he fell off a ladder, after which he was diagnosed with a blood clot and started on Eliquis, which he reports taking as prescribed. He denies any prior history of cardiac disease. The patient further reports a history of a left lower extremity wound, initially treated in February, for which he underwent surgical intervention with Dr. Barney, including placement of a wound vac. He has since been followed by infectious disease, specifically Dr. Luevano, and has been receiving IV daptomycin for approximately one month, with plans to continue for an additional 30 days. He receives routine wound care locally at [facility] and currently has a right-sided central venous catheter in place for antibiotic administration. Over the past several weeks, the patient has experienced progressive shortness of breath, which has worsened to the point that he is unable to lie flat and has been sleeping in a recliner due to dyspnea. He also reports progressive bilateral lower extremity swelling, now described as 3+ pitting edema, which he notes has significantly worsened. On the day of presentation, his shortness of breath acutely worsened, and he was noted to have oxygen saturations in the mid-80s on room air, prompting hospital evaluation. He denies chest pain but reports increasing fatigue and decreased exercise tolerance. On arrival to the emergency department, the patient was hypoxic with oxygen saturation of 88% on room air and tachycardic, though otherwise hemodynamically stable. He was placed on 2 L nasal cannula with improvement in oxygenation. Laboratory evaluation demonstrated a mild leukocytosis with WBC 10.7 and anemia with hemoglobin 9.8, consistent with prior baseline values. Chemistry panel revealed mild hyponatremia with sodium 133 and BUN 21. Cardiac biomarkers were notable for elevated and rising troponins (0.051 increasing to 0.061), and BNP was markedly elevated at 8,170, raising concern for significant volume overload and new-onset heart failure. Respiratory viral panel including COVID, influenza, and RSV was negative. CT imaging of the chest demonstrated cahlpanv-ey-nkeqky bilateral pleural effusions with associated passive collapse of the right lower lobe (subsegmental) and left lower lobe (posterior segment), along with multifocal bilateral ground-glass and consolidative opacities with interlobular septal thickening, most prominent in the lower lobes. These findings were felt to be nonspecific but concerning for pulmonary edema, multifocal infection, or a combined process. Additional CT findings included diffuse severe subcutaneous edema of the flanks, hepatomegaly, and a right-sided central venous catheter terminating in the distal SVC. EKG demonstrated sinus tachycardia with a heart rate of approximately 108 and nonspecific T-wave flattening, without acute ischemic ST changes. Overall, the patients presentation is most consistent with acute hypoxic respiratory failure due to new-onset decompensated congestive heart failure with significant volume overload, as evidenced by orthopnea, severe bilateral lower extremity edema, markedly elevated BNP, pleural effusions, and diffuse edema on imaging. A superimposed infectious process remains a consideration given recent hospitalization, indwelling central line, and multifocal lung opacities. In the emergency department, the patient was treated with IV Lasix, baby aspirin, and Zosyn. He has been accepted for transfer to [facility] under Dr. Mckeon for cardiology evaluation; however, due to bed availability, he will be admitted locally while awaiting transfer. The plan is to continue supplemental oxygen with close monitoring of respiratory status, continue IV diuresis with careful monitoring of urine output, renal function, and electrolytes, maintain telemetry with serial troponins and repeat EKGs, continue empiric broad-spectrum antibiotics pending clinical course and culture data, continue Eliquis for recent DVT in the absence of bleeding or procedural needs, and pursue transthoracic echocardiography and cardiology consultation at the receiving facility. - Review of Systems Constitutional: No Symptoms Eyes: No Symptoms Ears, Nose, & Throat: No Symptoms Respiratory: Cough, Short Of Breath Cardiac: Edema (BLE 3+) Abdominal/Gastrointestinal: No Symptoms Genitourinary Symptoms: No Symptoms Musculoskeletal: No Symptoms Skin: Other (LLE wound with wound vac) Neurological: No Symptoms Psychological: No Symptoms Endocrine: No Symptoms Hematologic/Lymphatic: No Symptoms Immunological/Allergic: No Symptoms Medications & Allergies Home Medications: Home Medication List Apixaban [Eliquis] 5 mg PO DAILY 04/27/25 [History Confirmed 05/14/25] Ergocalciferol (Vitamin D2) [Vitamin D2] 1,250 mcg PO WEEKLY 04/27/25 [History Confirmed 05/14/25] Saccharomyces Boulardii [Probiotic] 250 mg PO DAILY 04/27/25 [History Confirmed 05/14/25] Tamsulosin HCl 0.4 mg PO DAILY 04/27/25 [History Confirmed 05/14/25] Acetaminophen 325 mg [Tylenol 325 mg] 650 mg PO Q4H PRN PRN tablet 05/14/25 [Rx] Albuterol/Ipratropium 3ml Neb* [DUONEB 0.5-3 MG/3 ml Neb] 3 ml IH Q6HRT 05/14/25 [Rx] Furosemide 40 mg/4 ml [Lasix 40 MG/4 ML] 40 mg IV Q8H 05/14/25 [Rx] Ondansetron HCl 4 mg/2 ml [Zofran 4 MG/2 ML VIAL] 4 mg IV Q6H PRN PRN 05/14/25 [Rx] PANTOPRAZOLE 40 mg Tablet [Protonix 40MG Tablet] 40 mg PO DAILY tablet 05/14/25 [Rx] Piperacillin/Tazobactam 3.375G [Piperacillin/Tazobactam] 3.375 gm IV Q6HT 05/14/25 [Rx] Allergies/Adverse Reactions: Allergies Allergy/AdvReac Type Severity Reaction Status Date / Time codeine Allergy Swelling Verified 04/20/25 14:41 iodine Allergy Swelling Verified 04/20/25 14:41 - Past Medical History Past Medical History: Yes Neurological History: No Pertinent History ENT History: Cataracts Respiratory History: No Pertinent History Endocrine Medical History: Diabetes Type II Musculoskelatal History: No Pertinent History GI Medical History: No Pertinent History History: No Pertinent History Pyscho-Social History: No Pertinent History Male Reproductive Disorders: No Pertinent History Comment: pt states borderline diabetic - Past Surgical History Past Surgical History: Yes Neuro Surgical History: No Pertinent History Cardiac History: No Pertinent History Respiratory Surgery: No Pertinent History GI Surgical History: Cholecystectomy Genitourinary Surgical Hx: No Pertinent History Musculskeletal Surgical Hx: No Pertinent History Male Surgical History: No Pertinent History Other Surgical History: kidney biopsy Significant Family History: cancer, diabetes - Social History Smoking Status: Never smoker Exposure to second hand smoke: No Alcohol: None Drug Use: none - Social Determinants of Health Will the patient participate in the screening: Yes Do you worry about a steady place to live?: No Do you have any problems with any of the following?: No known problems In the past 12 months,have you had to go without utilities?: No Have you or anyone in your house had to go without enough: No Transportation Issues: No Has anyone in your support network made you feel unsafe?: No - Physical Exam Vital Signs: Vital Signs - 24 hr Temp Pulse Resp BP BP Pulse Ox 05/14/25 16:58 97.3 F 100 H 28 H 126/78 93 L 05/14/25 16:10 93 L 05/14/25 16:03 92 L 05/14/25 15:30 119/74 92 L 05/14/25 15:21 113/74 94 L 05/14/25 15:20 113/74 94 L 05/14/25 15:19 92 L 05/14/25 13:30 122/71 05/14/25 13:00 135/92 94 L 05/14/25 12:30 136/90 94 L 05/14/25 12:20 95 05/14/25 12:10 94 L 05/14/25 12:05 95 05/14/25 11:36 140/88 96 05/14/25 10:42 98.2 F 109 H 136/85 93 L General Appearance: no apparent distress Neurologic Exam: alert, oriented x 3, cooperative Eye Exam: PERRL/EOMI Ears, Nose, Throat Exam: normal ENT inspection Neck Exam: normal inspection Respiratory Exam: crackles/rales Cardiovascular Exam: regular rate/rhythm, normal heart sounds Gastrointestinal/Abdomen Exam: soft Rectal Exam: deferred Back Exam: normal inspection Extremity Exam: pedal edema, swelling (BLE +3 pitting edema) Skin Exam: other (LLE wound with wound vac Right chest port) Results - Labs Lab/Micro Results: Lab Results-Last 24 Hours 05/14/25 05/14/25 05/14/25 Range/Units 11:50 11:50 12:10 WBC 10.7 H (4.23-9.07) x10^3/uL RBC 3.55 L (4.63-6.08) x10^6/uL Hgb 9.8 L (13.7-17.5) g/dL Hct 31.5 L (40.1-51.0) % MCV 88.7 (79.0-92.2) fL MCH 27.6 (25.7-32.2) pg MCHC 31.1 L (32.3-36.5) g/dL RDW 14.4 (11.6-14.4) % Plt Count 444 H (163-337) x10^3/uL MPV 9.5 (9.4-12.4) fL Gran % 86.2 H (34.0-67.9) % Immature Gran % (Auto) 0.3 (0.001-0.429) % Nucleat RBC Rel Count 0.0 (0.00-0.2) % Eos # (Auto) 0.12 (0.04-0.54) x10^3/uL Immature Gran # (Auto) 0.03 (0.001-0.031) x10^3u/L Absolute Lymphs (auto) 0.65 L (1.32-3.57) x10^3/uL Absolute Monos (auto) 0.62 (0.30-0.82) x10^3/uL Absolute Nucleated RBC 0.00 (0.00-0.012) x10^3u/L Lymphocytes % 6.1 L (21.8-53.1) % Monocytes % 5.8 (5.3-12.2) % Eosinophils % 1.1 (0.8-7.0) % Basophils % 0.5 (0.2-1.2) % Absolute Granulocytes 9.23 H (1.78-5.38) x10^3/uL Basophils # 0.05 (0.01-0.08) x10^3/uL PT 11.4 (9.4-12.5) SECONDS INR 1.02 (0.8-3.0) APTT 24.2 L (25.1-36.5) SECONDS Sodium (135-145) mmol/L Potassium (3.5-5.1) mmol/L Chloride (98-107) mmol/L Carbon Dioxide (22-30) mmol/L Anion Gap (5-15) MEQ/L BUN (9-20) mg/dL Creatinine (0.66-1.25) mg/dL Estimated GFR ML/MIN Glucose (74-106) mg/dL Calcium (8.4-10.2) mg/dL Magnesium (1.6-2.3) mg/dL Total Bilirubin (0.2-1.3) mg/dL AST (17-59) U/L ALT (0-50) U/L Alkaline Phosphatase (38-126) U/L Troponin I (0.000-0.033) ng/mL NT-Pro-B Natriuret Pep (<300) pg/mL Serum Total Protein (6.3-8.2) g/dL Albumin (3.5-5.0) g/dL Influenza Type A Ag NEGATIVE (NEGATIVE) Influenza Type B Ag NEGATIVE (NEGATIVE) RSV (PCR) NEGATIVE (NEGATIVE) SARS-CoV-2 (PCR) NEGATIVE (NEGATIVE) 05/14/25 05/14/25 05/14/25 Range/Units 12:10 12:10 15:15 WBC (4.23-9.07) x10^3/uL RBC (4.63-6.08) x10^6/uL Hgb (13.7-17.5) g/dL Hct (40.1-51.0) % MCV (79.0-92.2) fL MCH (25.7-32.2) pg MCHC (32.3-36.5) g/dL RDW (11.6-14.4) % Plt Count (163-337) x10^3/uL MPV (9.4-12.4) fL Gran % (34.0-67.9) % Immature Gran % (Auto) (0.001-0.429) % Nucleat RBC Rel Count (0.00-0.2) % Eos # (Auto) (0.04-0.54) x10^3/uL Immature Gran # (Auto) (0.001-0.031) x10^3u/L Absolute Lymphs (auto) (1.32-3.57) x10^3/uL Absolute Monos (auto) (0.30-0.82) x10^3/uL Absolute Nucleated RBC (0.00-0.012) x10^3u/L Lymphocytes % (21.8-53.1) % Monocytes % (5.3-12.2) % Eosinophils % (0.8-7.0) % Basophils % (0.2-1.2) % Absolute Granulocytes (1.78-5.38) x10^3/uL Basophils # (0.01-0.08) x10^3/uL PT (9.4-12.5) SECONDS INR (0.8-3.0) APTT (25.1-36.5) SECONDS Sodium 133 L (135-145) mmol/L Potassium 4.6 (3.5-5.1) mmol/L Chloride 98 (98-107) mmol/L Carbon Dioxide 29 (22-30) mmol/L Anion Gap 10.4 (5-15) MEQ/L BUN 21 H (9-20) mg/dL Creatinine 0.96 (0.66-1.25) mg/dL Estimated GFR 91.1 ML/MIN Glucose 395 H (74-106) mg/dL Calcium 9.2 (8.4-10.2) mg/dL Magnesium 1.8 (1.6-2.3) mg/dL Total Bilirubin 0.60 (0.2-1.3) mg/dL AST 34 (17-59) U/L ALT 32 (0-50) U/L Alkaline Phosphatase 122 (38-126) U/L Troponin I 0.051 H* 0.061 H* (0.000-0.033) ng/mL NT-Pro-B Natriuret Pep 8170 (<300) pg/mL Serum Total Protein 6.1 L (6.3-8.2) g/dL Albumin 3.3 L (3.5-5.0) g/dL Influenza Type A Ag (NEGATIVE) Influenza Type B Ag (NEGATIVE) RSV (PCR) (NEGATIVE) SARS-CoV-2 (PCR) (NEGATIVE) - Radiology Impressions Radiology Exams & Impressions: Radiology Procedures Category Date Time Status CHEST 2 VIEWS (PA AND LAT) Stat Exams 05/14/25 11:10 Taken CHEST WITHOUT CONTRAST [CT] Stat Exams 05/14/25 11:41 Completed - Other Procedures and Tests Respiratory Therapy 05/14/25 17:10 Oxygen Nasal Cannula 2 lpm Assessment/Plan (1) Acute hypoxic respiratory failure Status: Acute Assessment & Plan: -Presented with oxygen saturation in the mid-80s on room air, requiring 2 L nasal cannula for stabilization. -Etiology felt to be multifactorial, primarily due to volume overload and large bilateral pleural effusions, with possible contribution from pulmonary infection. -CT chest demonstrated [id number] bilateral pleural effusions with right lower lobe subsegmental and left lower lobe posterior passive collapse, as well as multifocal bilateral ground-glass and consolidative opacities with septal thickening, consistent with pulmonary edema versus infection. -Continue supplemental oxygen with close monitoring, treat underlying volume overload with IV diuresis, continue antibiotics, and proceed with transfer for higher level of care and possible thoracentesis. Code(s): J96.01 - ACUTE RESPIRATORY FAILURE WITH HYPOXIA (2) Elevated troponin Status: Acute Assessment & Plan: concern for acute coronary syndrome vs demand ischemia (STEMI unlikely) -Troponin elevated and uptrending (0.051 - 0.061). -EKG demonstrated sinus tachycardia (~108 bpm) with nonspecific T-wave flattening and no ST-segment elevations, making STEMI unlikely at this time, though ACS cannot be fully excluded. -consult cardiology while awaiting transfer -Elevation felt most consistent with type 2 myocardial infarction (demand ischemia) in the setting of hypoxia and decompensated heart failure. -Continue telemetry, trend troponins, repeat EKGs as indicated, administer aspirin as given in ED Code(s): R79.89 - OTHER SPECIFIED ABNORMAL FINDINGS OF BLOOD CHEMISTRY (3) DVT (deep venous thrombosis) Status: Acute Assessment & Plan: -Continue Eliquis Code(s): I82.409 - ACUTE EMBOLISM AND THOMBOS UNSP DEEP VN UNSP LOWER EXTREMITY (4) Hospital-acquired pneumonia Status: Acute Assessment & Plan: -CT chest with multifocal ground-glass and consolidative opacities; patient with recent hospitalization and indwelling central line. -Mild leukocytosis with WBC 10.7; respiratory viral panel negative. -Clinical picture favors pulmonary edema, though infection cannot be excluded. -Prior daptomycin held; antimicrobial therapy broadened to Zosyn; reassess based on clinical course and further evaluation at receiving facility. Code(s): J18.9 - PNEUMONIA, UNSPECIFIED ORGANISM; Y95 - NOSOCOMIAL CONDITION (5) New onset of congestive heart failure Status: Acute Assessment & Plan: -Supported by clinical findings of orthopnea (sleeping in recliner), 3+ bilateral lower extremity pitting edema, and imaging showing diffuse subcutaneous flank edema and hepatomegaly. -BNP markedly elevated at 8,170, strongly supporting decompensated heart failure. -Echo not available during the weekend at this facility -No known prior cardiac history. -Continue IV Lasix 40mg TID with monitoring of urine output, renal function, and electrolytes; maintain telemetry; obtain transthoracic echocardiogram and cardiology consultation at receiving facility. Code(s): I50.9 - HEART FAILURE, UNSPECIFIED (6) Bilateral pleural effusion Status: Acute Assessment & Plan: -CT chest showed [id number]-[id number] bilateral pleural effusions with associated dependent atelectasis. -IR not available for thoracentesis at this facility -Likely transudative in the setting of new heart failure and systemic edema; however, diagnostic evaluation warranted given hypoxia. -Manage initially with diuresis; transfer to higher level of care for possible diagnostic and therapeutic thoracentesis. Code(s): J90 - PLEURAL EFFUSION, NOT ELSEWHERE CLASSIFIED (7) DMII (diabetes mellitus, type 2) Status: Acute Assessment & Plan: -ADA diet -SSI (8) Leg wound, left Status: Acute Assessment & Plan: -Initial wound treated surgically in February by Dr. López. -Under infectious disease care with Dr. Luevano; completed approximately one month of daptomycin, with plan for an additional 30 days prior to holding during this admission. -Receives wound care locally at [facility]. -Continue wound vac care; antibiotics transitioned to Zosyn during acute hospitalization; coordinate ongoing wound and ID management after transfer. VTE: Eliquis PPI: protonix Dispo: Pending transfer to [place] Code status: FULL CODE Plan of care time spent greater than 40 mins Code(s): S81.802A - UNSPECIFIED OPEN WOUND, LEFT LOWER LEG, INITIAL ENCOUNTER Hospital Summary - Hospital Course Hospital Course: The patient is a 60-year-old male admitted for acute hypoxic respiratory failure in the setting of suspected new-onset congestive heart failure with significant volume overload, manifested by progressive dyspnea, orthopnea, 3+ bilateral lower extremity edema, markedly elevated BNP of 8,170, and CT chest demonstrating oxjuhtun-[id number] bilateral pleural effusions with associated atelectasis and diffuse pulmonary edema. Initial evaluation also revealed mild troponin elevation felt to represent demand ischemia, and imaging findings that could not exclude a superimposed infectious process given his recent hospitalization and indwelling central venous catheter. During this brief inpatient stay, the patient was maintained on supplemental oxygen with improvement in oxygen saturation and respiratory comfort, and was treated with IV diuresis for volume overload. He remained hemodynamically stable without chest pain, arrhythmias, or increasing oxygen requirements while awaiting transfer. Given concern for possible healthcare-associated pneumonia and multifocal lung opacities on imaging, his prior daptomycin was held and antimicrobial therapy was transitioned to Zosyn for broader coverage. Anticoagulation with Eliquis for recent DVT was continued in the absence of bleeding concerns. Given the presence of large bilateral pleural effusions with persistent hypoxia and the anticipated need for diagnostic and/or therapeutic thoracentesis, the patient was accepted for transfer to a higher level of care at [facility] for cardiology and pulmonary evaluation. He remains admitted locally for monitoring and supportive management pending imminent transfer, which is expected within the next several hours. - Vitals & Intake/Output Vital Signs: Vital Signs Temperature 97.3 F 05/14/25 16:58 Pulse Rate 100 H 05/14/25 16:58 Respiratory Rate 28 H 05/14/25 16:58 Blood Pressure 126/78 05/14/25 16:58 O2 Sat by Pulse Oximetry 93 L 05/14/25 16:58 Intake & Output: Intake & Output 05/12/25 05/13/25 05/14/25 05/15/25 11:59 11:59 11:59 11:59 Weight 108.862 kg - Lab Result Diagrams: 05/14/25 12:10 05/14/25 12:10 Lab Results-Last 24 Hrs: Lab Results-Last 24 Hours 05/14/25 05/14/25 05/14/25 Range/Units 11:50 11:50 12:10 WBC 10.7 H (4.23-9.07) x10^3/uL RBC 3.55 L (4.63-6.08) x10^6/uL Hgb 9.8 L (13.7-17.5) g/dL Hct 31.5 L (40.1-51.0) % MCV 88.7 (79.0-92.2) fL MCH 27.6 (25.7-32.2) pg MCHC 31.1 L (32.3-36.5) g/dL RDW 14.4 (11.6-14.4) % Plt Count 444 H (163-337) x10^3/uL MPV 9.5 (9.4-12.4) fL Gran % 86.2 H (34.0-67.9) % Immature Gran % (Auto) 0.3 (0.001-0.429) % Nucleat RBC Rel Count 0.0 (0.00-0.2) % Eos # (Auto) 0.12 (0.04-0.54) x10^3/uL Immature Gran # (Auto) 0.03 (0.001-0.031) x10^3u/L Absolute Lymphs (auto) 0.65 L (1.32-3.57) x10^3/uL Absolute Monos (auto) 0.62 (0.30-0.82) x10^3/uL Absolute Nucleated RBC 0.00 (0.00-0.012) x10^3u/L Lymphocytes % 6.1 L (21.8-53.1) % Monocytes % 5.8 (5.3-12.2) % Eosinophils % 1.1 (0.8-7.0) % Basophils % 0.5 (0.2-1.2) % Absolute Granulocytes 9.23 H (1.78-5.38) x10^3/uL Basophils # 0.05 (0.01-0.08) x10^3/uL PT 11.4 (9.4-12.5) SECONDS INR 1.02 (0.8-3.0) APTT 24.2 L (25.1-36.5) SECONDS Sodium (135-145) mmol/L Potassium (3.5-5.1) mmol/L Chloride (98-107) mmol/L Carbon Dioxide (22-30) mmol/L Anion Gap (5-15) MEQ/L BUN (9-20) mg/dL Creatinine (0.66-1.25) mg/dL Estimated GFR ML/MIN Glucose (74-106) mg/dL Calcium (8.4-10.2) mg/dL Magnesium (1.6-2.3) mg/dL Total Bilirubin (0.2-1.3) mg/dL AST (17-59) U/L ALT (0-50) U/L Alkaline Phosphatase (38-126) U/L Troponin I (0.000-0.033) ng/mL NT-Pro-B Natriuret Pep (<300) pg/mL Serum Total Protein (6.3-8.2) g/dL Albumin (3.5-5.0) g/dL Influenza Type A Ag NEGATIVE (NEGATIVE) Influenza Type B Ag NEGATIVE (NEGATIVE) RSV (PCR) NEGATIVE (NEGATIVE) SARS-CoV-2 (PCR) NEGATIVE (NEGATIVE) 05/14/25 05/14/25 05/14/25 Range/Units 12:10 12:10 15:15 WBC (4.23-9.07) x10^3/uL RBC (4.63-6.08) x10^6/uL Hgb (13.7-17.5) g/dL Hct (40.1-51.0) % MCV (79.0-92.2) fL MCH (25.7-32.2) pg MCHC (32.3-36.5) g/dL RDW (11.6-14.4) % Plt Count (163-337) x10^3/uL MPV (9.4-12.4) fL Gran % (34.0-67.9) % Immature Gran % (Auto) (0.001-0.429) % Nucleat RBC Rel Count (0.00-0.2) % Eos # (Auto) (0.04-0.54) x10^3/uL Immature Gran # (Auto) (0.001-0.031) x10^3u/L Absolute Lymphs (auto) (1.32-3.57) x10^3/uL Absolute Monos (auto) (0.30-0.82) x10^3/uL Absolute Nucleated RBC (0.00-0.012) x10^3u/L Lymphocytes % (21.8-53.1) % Monocytes % (5.3-12.2) % Eosinophils % (0.8-7.0) % Basophils % (0.2-1.2) % Absolute Granulocytes (1.78-5.38) x10^3/uL Basophils # (0.01-0.08) x10^3/uL PT (9.4-12.5) SECONDS INR (0.8-3.0) APTT (25.1-36.5) SECONDS Sodium 133 L (135-145) mmol/L Potassium 4.6 (3.5-5.1) mmol/L Chloride 98 (98-107) mmol/L Carbon Dioxide 29 (22-30) mmol/L Anion Gap 10.4 (5-15) MEQ/L BUN 21 H (9-20) mg/dL Creatinine 0.96 (0.66-1.25) mg/dL Estimated GFR 91.1 ML/MIN Glucose 395 H (74-106) mg/dL Calcium 9.2 (8.4-10.2) mg/dL Magnesium 1.8 (1.6-2.3) mg/dL Total Bilirubin 0.60 (0.2-1.3) mg/dL AST 34 (17-59) U/L ALT 32 (0-50) U/L Alkaline Phosphatase 122 (38-126) U/L Troponin I 0.051 H* 0.061 H* (0.000-0.033) ng/mL NT-Pro-B Natriuret Pep 8170 (<300) pg/mL Serum Total Protein 6.1 L (6.3-8.2) g/dL Albumin 3.3 L (3.5-5.0) g/dL Influenza Type A Ag (NEGATIVE) Influenza Type B Ag (NEGATIVE) RSV (PCR) (NEGATIVE) SARS-CoV-2 (PCR) (NEGATIVE) - Radiology Exams Ordered Rad Exams-Entire Visit: Radiology Procedures Category Date Time Status CHEST 2 VIEWS (PA AND LAT) Stat Exams 05/14/25 11:10 Taken CHEST WITHOUT CONTRAST [CT] Stat Exams 05/14/25 11:41 Completed - Procedures and Test Procedures and Tests throughout Hospitalization: Therapy Orders & Screens 05/14/25 17:10 Oxygen Nasal Cannula 2 lpm Comment: Telemedicine Encounter - Telemedicine Encounter Telemedicine Encounter: "The entirety of this encounter was performed via Telemedicine" This visit was performed using real-time audio and video connection between my location and thepatients locationwith the assistance of a surrogateat the patients location. Written or verbal consent was obtained from the patient/guardian to perform this visit usingsynchrTropic Networkstelemedicine technology. Any patient questions regarding the telemedicine interaction were answered. - Discharge Discharge Date: 05/14/25 Disposition: DC TO [facility] Condition: Serious Prescriptions: New Albuterol/Ipratropium 3ml Neb* [DUONEB 0.5-3 MG/3 ml Neb] 3 ml IH Q6HRT Furosemide 40 mg/4 ml [Lasix 40 MG/4 ML] 40 mg IV Q8H Piperacillin/Tazobactam 3.375G [Piperacillin/Tazobactam] 3.375 gm IV Q6HT PANTOPRAZOLE 40 mg Tablet [Protonix 40MG Tablet] 40 mg PO DAILY tablet Acetaminophen 325 mg [Tylenol 325 mg] 650 mg PO Q4H PRN PRN tablet PRN Reason: Pain, Fever, Headache Ondansetron HCl 4 mg/2 ml [Zofran 4 MG/2 ML VIAL] 4 mg IV Q6H PRN PRN PRN Reason: Nausea/Vomiting Continue Ergocalciferol (Vitamin D2) [Vitamin D2] 1,250 mcg PO WEEKLY Tamsulosin HCl 0.4 mg PO DAILY Saccharomyces Boulardii [Probiotic] 250 mg PO DAILY Apixaban [Eliquis] 5 mg PO DAILY Discontinued Glyburide/Metformin HCl [Glyburide-Metformin 5-500 mg] 1 tablet PO DAILY Loperamide HCl [Loperamide] 2 mg PO DAILY Bumetanide 1 mg PO DAILY Follow up with: DOCTOR,NO FAMILY [Primary Care Provider, UNKNOWN] <GAVINO ROSS - Last Filed: 05/15/25 15:08> History of Present Illness - Chief Complaint History of Present Illness: is a 60 year old male. - Physical Exam Vital Signs: Vital Signs - 24 hr Temp Pulse Resp BP BP Pulse Ox 05/14/25 20:58 79.1 F 116 H 17 138/85 93 L 05/14/25 19:22 104 H 18 92 L 05/14/25 18:02 97.3 F 107 H 28 H 126/78 93 L 05/14/25 16:58 97.3 F 100 H 28 H 126/78 93 L 05/14/25 16:10 93 L 05/14/25 16:03 92 L 05/14/25 15:30 119/74 92 L 05/14/25 15:21 113/74 94 L 05/14/25 15:20 113/74 94 L 05/14/25 15:19 92 L Results - Labs Lab/Micro Results: Lab Results-Last 24 Hours 05/14/25 05/14/25 05/14/25 Range/Units 15:15 17:50 19:15 POC Glucometer (74 to 106) mg/dL Troponin I 0.061 H* 0.056 H* (0.000-0.033) ng/mL TSH 3rd Generation 2.739 (0.470-4.680) mIU/L 05/14/25 Range/Units 20:19 POC Glucometer 386 H (74 to 106) mg/dL Troponin I (0.000-0.033) ng/mL TSH 3rd Generation (0.470-4.680) mIU/L Accuchecks Date 05/14/25 Time 20:21 - Radiology Impressions Radiology Exams & Impressions: Radiology Procedures Category Date Time Status CHEST 2 VIEWS (PA AND LAT) Stat Exams 05/14/25 11:10 Completed CHEST WITHOUT CONTRAST [CT] Stat Exams 05/14/25 11:41 Completed Hospital Summary - Vitals & Intake/Output Vital Signs: Vital Signs Temperature 79.1 F 05/14/25 20:58 Pulse Rate 116 H 05/14/25 20:58 Respiratory Rate 17 05/14/25 20:58 Blood Pressure 138/85 05/14/25 20:58 O2 Sat by Pulse Oximetry 93 L 05/14/25 20:58 Intake & Output: Intake & Output 05/13/25 05/14/25 05/15/25 05/16/25 11:59 11:59 11:59 11:59 Intake Total 566 Output Total 1000 Balance -434 Weight 108.862 kg 77.7 kg - Lab Result Diagrams: 05/14/25 12:10 05/14/25 12:10 Lab Results-Last 24 Hrs: Lab Results-Last 24 Hours 05/14/25 05/14/25 05/14/25 Range/Units 15:15 17:50 19:15 POC Glucometer (74 to 106) mg/dL Troponin I 0.061 H* 0.056 H* (0.000-0.033) ng/mL TSH 3rd Generation 2.739 (0.470-4.680) mIU/L 05/14/25 Range/Units 20:19 POC Glucometer 386 H (74 to 106) mg/dL Troponin I (0.000-0.033) ng/mL TSH 3rd Generation (0.470-4.680) mIU/L Micro Results-Entire Visit: Accuchecks Date 05/14/25 Time 20:21 - Radiology Exams Ordered Rad Exams-Entire Visit: Radiology Procedures Category Date Time Status CHEST 2 VIEWS (PA AND LAT) Stat Exams 05/14/25 11:10 Completed CHEST WITHOUT CONTRAST [CT] Stat Exams 05/14/25 11:41 Completed - Procedures and Test Procedures and Tests throughout Hospitalization: Therapy Orders & Screens 05/14/25 17:10 Oxygen Nasal Cannula 2 lpm Comment: 05/14/25 17:50 Incentive Spirometry UD Comment: Diagnosis: pleural effusion nstemi Respiratory Therapy Consult ONCE Comment: Reason For Exam: Diagnosis: pleural effusion nstemi 05/14/25 19:35 Respiratory Therapy Assessment DAILY Comment: Diagnosis: pleural effusion nstemi Telemedicine Encounter - Telemedicine Encounter Telemedicine Encounter: "The entirety of this encounter was performed via Telemedicine" This visit was performed using real-time audio and video connection between my location and thepatients locationwith the assistance of a surrogateat the patients location. Written or verbal consent was obtained from the patient/guardian to perform this visit using[employer] technology. Any patient questions regarding the telemedicine interaction were answered. BAIRON Encounter - BAIRON Encounter Attestation BAIRON Encounter Attestation: "IhheenapersonalnitisheenandexKarenYANIRA COSTA on 05/14/2025 andhavediscussed pertinent aspects of their care with Dmitriy Ayers agree with the history, physical exam (any modifications based on my personal exam will be noted below), assessment, and plan as outlined in original note. Please see immediately below for my summary of findings and additional assessment and plan along with any meaningful corrections/explanations to the Subjective/Objective portions of the BAIRON note will be noted." My portion of the encounter took place via telemedicine. -Patient s/p recent hospitalization at [facility] for traumatic left leg wound, on IV daptomycin, now presenting with new onset heart failure with hypoxia, moderate to severe bilateral pleural effusions and positive trops. Patient awaiting transfer to [facility] and admitted for a short stay. Patient received IV lasix in the ER and was hemodynamically stable.
[2025-05-14] MEDS ORDERED: TYLENOL 325 MG PO PRN (17:50)
[2025-05-14] MEDS ORDERED: Zofran 4 MG/2 ML VIAL IV PRN (17:50)
[2025-05-14] MEDS ORDERED: VITAMIN D2 PO SCH (18:00)
[2025-05-14] MEDS: Lasix 40 MG/4 ML IV SCH (18:56)
[2025-05-14] MEDS ORDERED: DUONEB 0.5-3 MG/3 ml Neb IH ONE (19:21)
[2025-05-14] MEDS: DUONEB 0.5-3 MG/3 ml Neb IH SCH (19:22)
--- NOTE | 2025-05-14 19:49 | XRAY ---
Indication: Short of breath. Comparison: December 06, 2020 PA/lateral chest better inflated with new diffuse bilateral patchy ground-glass opacities and moderate bibasilar effusions/atelectasis. Heart not enlarged with new right Port-A-Cath. Bony thorax intact again with osteopenia and degenerative changes.
[2025-05-14] MEDS: HUMALOG SQ PRN (20:55)
[2025-05-14 21:48] VITALS: BP 138/85; PULSE 116; RESP 17; TEMP 79.1; O2SAT 93
[2025-05-15] MEDS ORDERED: Protonix 40MG Tablet PO SCH (10:00)
[2025-05-15] MEDS ORDERED: SACCHAROMYCES BOULARDII 250 MG PO SCH (10:00)
[2025-05-15] MEDS ORDERED: Flomax 0.4 MG PO SCH (10:00)
[2025-05-15] MEDS ORDERED: NON-FORMULARY ITEM (Apixaban [Eliquis] 5 MG Tablet) PO SCH (10:00)
== END 2025-05-14 21:53 | disposition home or self-care (01) ==
LOC: ED 10:41 → MED SURG 16:53
PROVIDERS: ADMIT Internal Medicine; ATTEND Internal Medicine
DX: J96.01 Acute respiratory failure with hypoxia (principal); R79.89 Other specified abnormal findings of blood chemistry; I82.409 Acute embolism and thrombosis of unspecified deep veins of unspecified lower extremity; J18.9 Pneumonia, unspecified organism; I50.9 Heart failure, unspecified; J90 Pleural effusion, not elsewhere classified; E11.9 Type 2 diabetes mellitus without complications; S81.802A Unspecified open wound, left lower leg, initial encounter; R60.0 Localized edema; Z79.899 Other long term (current) drug therapy
CPT/HCPCS: 36415; 71046; 71250; 80053; 82947; 83735; 83880; 84443; 84484; 85025; 85610; 85730; 87637; 93005; 93268; 94640; 94760; 96374; 99291; G0378; Q3014